=== PATIENT | female | born 1960 | race Caucasian/White ===

== ENCOUNTER 2016-08-23 17:21 | Emergency (ER) | payer OTHER, MEDICARE ==
[~2016-08-23 17:21] MED LIST: ALLEGRA; ALLEGRA ALLERG180 M1 PO; AMOXICILLIN500 M2 PO; ATIVAN0.5 M1 PO; ATIVAN1 M1 PO; CALCIUM 600600 M1 PO; CALCIUM600 M3 PO; CHILDREN'S ASPI81 M1 PO; GI COCKTAIL; LEVSIN0.125 M1 PO; LIDOCAINE HCL V15 ML PO; MASON NATURAL2000 IU PO; NASONEX0.05 MG/Ac NAS; PANTOPRAZOLE SO40 M1 PO; SIMVASTATIN20 MG PO; VITAMIN D-32000 UNIT PO; ZITHROMAX Z-PA250 M1 PO; ZOCOR40 M1 PO
[2016-08-23 18:57] LABS: ABSOLUTE BASOPHIL COUNT 0.1 /CUMM (0.0-0.2); ABSOLUTE EOSINOPHIL COUNT 0.1 /CUMM (0.0-0.7); ABSOLUTE GRANULOCYTE CT 6.1 /CUMM (1.4-6.5); ABSOLUTE LYMPH COUNT 1.4 /CUMM (1.2-3.4); ABSOLUTE MONOCYTE COUNT 0.7 /CUMM (0.10-0.60); BASOPHIL % 0.7 % (0.0-2.0); EOSINOPHIL % 1.4 % (0-5); GRANULOCYTE % 73.2 % (42.2-75.2); HEMATOCRIT 41.8 % (37-47); MEAN CORPUSCULAR HGB CONC 32.7 G/DL (33.0-37.0); MEAN CORPUSCULAR VOLUME 85.5 FL (81.0-99.0); MEAN PLATELET VOLUME 10.4 FL (7.4-10.4); PLATELET COUNT 163 /CUMM (130-400); RBC DISTRIBUTION WIDTH 13.8 % (11.5-14.5); WHITE BLOOD CELL COUNT 8.4 /CUMM (4.8-10.8)
[2016-08-23] MEDS ORDERED: LEVSIN-SL0.125 MG SL (18:59)
[2016-08-23] MEDS ORDERED: BONIVA150 M1 PO (19:00)
[2016-08-23 19:36] VITALS: BP 135/86
[2016-08-23] MEDS ORDERED: LIDOCAINE HCL V15 ML PO (20:13)
--- NOTE | 2016-08-23 20:14 | ED GI/GU/ABDOMINAL COMPLAINT ---
History of Present Illness General Chief Complaint: Abdominal Pain/Flank Pain Stated Complaint: ABD PAIN, X 1 DAY Source: patient, family Exam Limitations: no limitations Vital Signs & Intake/Output Vital Signs & Intake/Output Vital Signs Date Time Temp Pulse Resp B/P Pulse O2 O2 Flow FiO2 Ox Delivery Rate 08/23 1936 98 08/24 1935 97.5 78 20 135/86 98 Room Air 08/23 1729 97.9 110 22 143/83 97 Room Air ED Intake and Output 08/24 0000 08/23 1200 Intake Total Output Total 100 Balance -100 Output, Urine 100 Patient 110 lb Weight Allergies Coded Allergies: No Known Allergies (08/30/15) Reconcile Medications Aspirin (Children's Aspirin) 81 MG TAB.CHEW 1 TAB PO DAILY HEART/BLOOD ( Reported) Calcium Carbonate (Calcium) 600 MG TABLET 2 TAB PO DAILY SUPPLEMENT (Reported ) Cholecalciferol (Vitamin D3) (Vitamin D-3) (Unknown Strength) TABLET (Unknown Dose) PO DAILY SUPPLEMENT (Reported) Fexofenadine HCl (Jonna Allergy) 180 MG TABLET 1 TAB PO DAILY ALLERGIES ( Reported) Hyoscyamine Sulfate (Levsin-Sl) 0.125 MG TAB.SUBL 1 TAB SL PRN GI (Reported) Ibandronate Sodium (Boniva) 150 MG TABLET 1 TAB PO Q30D BONES (Reported) on the same date with a full glass of water at least 30 minutes before first food or drink of the day; remain in an upright posi Lidocaine HCl (Lidocaine HCl Viscous) 2 % SOLUTION 15 ML PO 4XDP Epigasrtic Pain Lorazepam (Ativan) 0.5 MG TABLET 1 TAB PO QAM STRESS (Reported) Lorazepam (Ativan) 1 MG TABLET 1 TAB PO QPM STRESS (Reported) Pantoprazole Sodium 40 MG TABLET.DR 1 TAB PO DAILY GI (Reported) Simvastatin (Zocor*) 40 MG TABLET 1 TAB PO QPM CHOLESTEROL (Reported) Triage Note: PER PT ABD PAIN ALL DAY DENIES DIARRHEA. Triage Nurses Notes Reviewed? yes ? n Is pt currently ? No HPI: 55 yo F PMH HTN, CP, IBS, GERD presenting with epigastric pain. Patient has had identical pain intermittently for the last 15 years, extensive outpatient evaluation by neurology and gastroenterology, thought to be 2/2 dystonia, typically managed at home with Maalox/lidocaine and ativan. Tonight after dinner patient developed epigasrtic pain, squeezing/twisting quality, consistent with previous episodes, less severe than usual, took ativan and GI cocktail without significant relief prompting presentation to the ED. Deneis assocaited fevers, chills, cough, CP, SOB, N/V/D/C, bloody stools, urinary Sx, focal neurologic Sx. (CINDY CAMACHO MD) Past History Travel History Traveled to [place] past 21 day No Medical History Any Pertinent Medical History? see below for history Neurological: CEREBRAL PALSY EENT: allergies Cardiovascular: hyperlipidemia, MITRAL VALVE REPAIR Respiratory: NONE Gastrointestinal: GERD, irritable bowel syndrome Hepatic: NONE Renal: NONE Musculoskeletal: NONE Psychiatric: NONE Endocrine: NONE Blood Disorders: NONE HOST/HOSTESS/Reproductive: NONE Surgical History Surgical History: non-contributory Psychosocial History What is your primary language Italian Tobacco Use: Never used Family History Hx Contributory? Yes (CINDY CAMACHO MD) Review of Systems Review of Systems Constitutional: Reports: no symptoms. EENTM: Reports: no symptoms. Respiratory: Reports: no symptoms. Cardiovascular: Reports: no symptoms. GI: Reports: abdominal pain. Denies: constipation, diarrhea, nausea, bloody stool, vomiting. Genitourinary: Reports: no symptoms. Musculoskeletal: Reports: no symptoms. Skin: Reports: no symptoms. Neurological/Psychological: Reports: anxiety. Hematologic/Endocrine: Reports: no symptoms. Immunologic/Allergic: Reports: no symptoms. All Other Systems: Reviewed and Negative (CINDY CAMACHO MD) Physical Exam Physical Exam General Appearance: well developed/nourished, no apparent distress, alert Head: atraumatic, normal appearance Eyes: Bilateral: normal appearance. Neck: normal inspection, supple, full range of motion Respiratory: normal breath sounds, no respiratory distress, lungs clear Cardiovascular: regular rate/rhythm, normal peripheral pulses Gastrointestinal: normal bowel sounds, soft, Mild epigasrtic TTP without rebound or guarding Neurologic/Psych: no motor/sensory deficits, awake, alert Core Measures ACS in differential dx? No Severe Sepsis Present: No Septic Shock Present: No (CINDY CAMACHO MD) Progress Differential Diagnosis: appendicitis, biliary colic, bowel obstruction, cholecystitis, diverticulitis, gastritis, ischemic bowel, pancreatitis, PUD/GERD , SBO, UTI/pyelo Plan of Care: Orders Procedure Date/time Status URINE 08/23 1813 Complete URINALYSIS 08/23 1813 Complete LIPASE 08/23 1813 Complete LACTIC ACID 08/23 1813 Complete COMPREHENSIVE METABOLIC PANEL 08/23 1813 Complete CBC WITHOUT DIFFERENTIAL 08/23 1813 Complete Laboratory Tests 08/23/161844: Anion Gap 12, Estimated GFR > 60, BUN/Creatinine Ratio 21.4, Glucose 107 H, Lactic Acid 1.1, Calcium 9.7, Total Bilirubin 1.8 H, AST 24, ALT 34, Alkaline Phosphatase 104, Total Protein 7.5, Albumin 4.4, Globulin 3.1, Albumin/Globulin Ratio 1.4, Lipase 109, CBC w Diff NO MAN DIFF REQ, RBC 4.90, MCV 85.5, MCH 28.0, RDW 13.8, MPV 10.4, Gran % 73.2, Lymphocytes % 16.9 L, Monocytes % 7.8, Eosinophils % 1.4, Basophils % 0.7, Absolute Granulocytes 6.1, Absolute Lymphocytes 1.4, Absolute Monocytes 0.7 H, Absolute Eosinophils 0.1, Absolute Basophils 0.1, PUBS MCHC 32.7 L 08/23/161838: Urinalysis LIGHT H, Urine Color YEL, Urine Clarity CLEAR, Urine pH 6.0, Ur Specific [place] >= 1.030, Urine Protein TRACE H, Urine Ketones TRACE H, Urine Nitrite NEG, Urine Bilirubin NEG, Urine Urobilinogen 0.2, Ur Leukocyte Esterase NEG, Ur Microscopic SEDIMENT EXAMINED, Urine RBC RARE, Urine WBC RARE, Ur Epithelial Cells RARE, Urine Mucus MOD H, Urine Hemoglobin SMALL H, Urine Glucose NEG, Urine Test NEGATIVE Physician MDM: 55 yo F PMH CP, GERD, IBS presenting with acute on chronic epigastric abdominal pain. VSS, physical exam as above. DDx: Acute on chronic pain 2/2 dystonia, GERD, PUD, gasrtitis, less likely surgical abdominal pathology. CMP, CBC, lipase, lactic acid unermarkable. Given ativan 1 mg and maalox with complete resolution of abdominal discomfort (consistent with prior presentations), On re-examination resting comfortably, requesting discharge. Given presentation consistent with previous, with reassuring labs, D/Andry with return precautions, plan to f/u with neurologist or milieu therapist in the next 2-3 days . D/W Dr. Sellers. (DOUG PETER,CINDY) Initial ED EKG: none (DOUG PETER,CINDY) Departure Departure Disposition: HOME OR SELF CARE Condition: Stable Clinical Impression Primary Impression: Abdominal pain Qualifiers: Abdominal location: epigastric Qualified Code: R10.13 - Epigastric pain Secondary Impressions: Dystonia Referrals: HUI PETER,ARIES Jain (PCP/Family) Additional Instructions: Take maalox, viscous lidocaine, and ativan as previously prescribed. Follow up wt Dr. Milian or your neurologist in the next 2-3 days. Return to the ED for any new, worsening, or concerning symptoms. Departure Forms: Customer Survey General Discharge Information Prescriptions: Current Visit Scripts Lidocaine HCl (Lidocaine HCl Viscous) 15 ML PO 4XDP #100 ML (DOUG PETER,CINDY) Resident Co-Sign Statement Statement: ED Attending supervision documentation- [x] I saw and evaluated the patient. I have also reviewed all the pertinent lab results and diagnostic results. I agree with the findings and the plan of care as documented in the Resident's documentation. [] I have reviewed the ED Record and agree with the Resident's documentation. [] Additions or exceptions (if any) to the Resident's note and plan are summarized below: [] (ÁLVARO PETER,KHADAR Stanley)
== END 2016-08-23 20:36 ==
LOC: ERH 17:21
PROVIDERS: Student in an Organized Health Care Education/Training Program
DX: R10.13 Epigastric pain (principal); G24.9 Dystonia, unspecified
CPT/HCPCS: 81001; 81025

== ENCOUNTER 2016-09-08 15:35 | Emergency (ER) | payer OTHER, MEDICARE ==
[~2016-09-08 15:35] MED LIST changes: +BONIVA150 M1 PO; +LEVSIN-SL0.125 MG SL
[2016-09-08 15:56] VITALS: BP 147/92
--- NOTE | 2016-09-08 17:03 | ED GI/GU/ABDOMINAL COMPLAINT ---
History of Present Illness General Chief Complaint: Abdominal Pain/Flank Pain Stated Complaint: ABD PAIN Source: patient, family, old records Exam Limitations: no limitations Vital Signs & Intake/Output Vital Signs & Intake/Output Vital Signs Date Time Temp Pulse Resp B/P Pulse O2 O2 Flow FiO2 Ox Delivery Rate 09/08 1705 98 09/08 1556 98.9 90 22 147/92 98 Room Air ED Intake and Output 09/09 0000 09/08 1200 Intake Total 100 Output Total Balance 100 Intake, Oral 100 Allergies Coded Allergies: No Known Allergies (08/30/15) Reconcile Medications Aspirin (Children's Aspirin) 81 MG TAB.CHEW 1 TAB PO DAILY HEART/BLOOD ( Reported) Calcium Carbonate (Calcium) 600 MG TABLET 2 TAB PO DAILY SUPPLEMENT (Reported ) Cholecalciferol (Vitamin D3) (Vitamin D-3) (Unknown Strength) TABLET (Unknown Dose) PO DAILY SUPPLEMENT (Reported) Fexofenadine HCl (Jonna Allergy) 180 MG TABLET 1 TAB PO DAILY ALLERGIES ( Reported) Hyoscyamine Sulfate (Levsin-Sl) 0.125 MG TAB.SUBL 1 TAB SL PRN GI (Reported) Ibandronate Sodium (Boniva) 150 MG TABLET 1 TAB PO Q30D BONES (Reported) on the same date with a full glass of water at least 30 minutes before first food or drink of the day; remain in an upright posi Lidocaine HCl (Lidocaine HCl Viscous) 2 % SOLUTION 15 ML PO 4XDP Epigasrtic Pain Lorazepam (Ativan) 0.5 MG TABLET 1 TAB PO QAM STRESS (Reported) Lorazepam (Ativan) 1 MG TABLET 1 TAB PO QPM STRESS (Reported) Pantoprazole Sodium 40 MG TABLET.DR 1 TAB PO DAILY GI (Reported) Simvastatin (Zocor*) 40 MG TABLET 1 TAB PO QPM CHOLESTEROL (Reported) Triage Note: PER PT HERE WITH ABD PAIN USED GI COCKTAIL ABOUT 1 PM SLEPT SOME BUT WOKE UP STILL WUITH PAIN. Triage Nurses Notes Reviewed? yes ? n Is pt currently ? No HPI: Patient is a 55-year-old female presents complaining of epigastric pain onset at 1:30 PM today. Pain is "an annoying pain" consistent with patient's chronic abdominal pain. Patient took Maalox and a dose of Ativan, slept for 1 hour and awoke with the same pain. Pain is currently 8 out of 10. Denies fevers, chills , nausea, vomiting, urinary symptoms, diarrhea, constipation. Past History Travel History Traveled to [place] past 21 day No Medical History Any Pertinent Medical History? 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 No Review of Systems Review of Systems Constitutional: Denies: chills, fever. EENTM: Reports: no symptoms. Respiratory: Reports: no symptoms. Cardiovascular: Reports: no symptoms. GI: Reports: see HPI. Genitourinary: Reports: no symptoms. Musculoskeletal: Reports: no symptoms. Skin: Reports: no symptoms. Neurological/Psychological: Reports: no symptoms. Hematologic/Endocrine: Reports: no symptoms. Immunologic/Allergic: Reports: no symptoms. Physical Exam Physical Exam General Appearance: well developed/nourished, alert, awake Head: atraumatic, normal appearance Eyes: Bilateral: normal appearance, PERRL, EOMI. Ears, Nose, Throat, Mouth: hearing grossly normal, moist mucous membrane Neck: normal inspection, supple, full range of motion Respiratory: no respiratory distress Cardiovascular: regular rate/rhythm Gastrointestinal: normal bowel sounds, soft, non-tender Back: normal inspection, normal range of motion Extremities: normal range of motion Neurologic/Psych: awake, alert, oriented x 3, normal mood/affect Skin: intact, normal color, warm/dry Core Measures ACS in differential dx? No Severe Sepsis Present: No Septic Shock Present: No Progress Differential Diagnosis: abdominal pain secondary to cerebral palsy, biliary colic, cholecystitis, pancreatitis, perforated viscous, chronic abdominal pain. Plan of Care: Current Medications Sig/Eagle Start time Last Medication Dose Stop Time Status Admin Lorazepam 1 MG ONCE ONE 09/08 1714 UNVr (Ativan) 09/09 171509/08/2016 5:12:11 PM: Abdomen soft, nontender throughout. Similar to multiple previous emergency Department visits. Labs deferred on initial presentation we' ll treat with Ativan and GI cocktail which has previously improved patient's symptoms if no improvement then will obtain lab work and consider further imaging. 09/08/2016 5:54:27 PM: Patient reports pain has resolved. Labs and imaging deferred. 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 Will provide information for Dr. Gee. Also encouraged follow up with her doctors. (KRYSTYNA WOODS,ANAY) Initial ED EKG: none Departure Departure Time of Disposition: 1755 Disposition: HOME OR SELF CARE Condition: Stable Clinical Impression Primary Impression: Chronic abdominal pain Referrals: HUI PETER,ARIES Jain (PCP/Family) Additional Instructions: Follow-up with your primary doctor for further evaluation. Also you may contact Dr. Gee (banner painter). Return to the emergency department if fevers, vomiting, increasing pain, worsening of symptoms. Departure Forms: Customer Survey General Discharge Information
== END 2016-09-08 18:00 ==
LOC: ERH 15:35
DX: R10.13 Epigastric pain (principal)
CPT/HCPCS: 96372

== ENCOUNTER 2016-11-06 13:09 | Emergency (ER) | payer OTHER, MEDICARE ==
[~2016-11-06] VITALS: Ht 167.6 cm; Wt 50.3 kg
--- NOTE | 2016-11-06 13:30 | ED GI/GU/ABDOMINAL COMPLAINT ---
History of Present Illness General Chief Complaint: Abdominal Pain/Flank Pain Stated Complaint: abd pain Source: patient Exam Limitations: no limitations Vital Signs & Intake/Output Vital Signs & Intake/Output Vital Signs Date Time Temp Pulse Resp B/P B/P Pulse O2 O2 Flow FiO2 Mean Ox Delivery Rate 11/06 1516 97.9 82 18 147/80 95 Room Air 11/06 1315 98.4 85 15 158/84 92 Room Air Room Air Allergies Coded Allergies: No Known Allergies (11/06/16) Reconcile Medications Aspirin (Children's Aspirin) 81 MG TAB.CHEW 1 TAB PO DAILY HEART/BLOOD ( Reported) Calcium (Elemental-Fr Calcarb) (Calcium) 600 MG CALCIUM (1,500 MG) TABLET 2 TAB PO DAILY SUPPLEMENT (Reported) Cholecalciferol (Vitamin D3) (Vitamin D-3) (Unknown Strength) TABLET (Unknown Dose) PO DAILY SUPPLEMENT (Reported) Fexofenadine HCl (Jonna Allergy) 180 MG TABLET 1 TAB PO DAILY ALLERGIES ( Reported) Hyoscyamine Sulfate (Levsin-Sl) 0.125 MG TAB.SUBL 1 TAB SL PRN GI (Reported) Ibandronate Sodium (Boniva) 150 MG TABLET 1 TAB PO Q30D BONES (Reported) on the same date with a full glass of water at least 30 minutes before first food or drink of the day; remain in an upright posi Lidocaine HCl (Lidocaine HCl Viscous) 2 % SOLUTION 15 ML PO 4XDP Epigasrtic Pain Lorazepam (Ativan) 0.5 MG TABLET 1 TAB PO QAM STRESS (Reported) Lorazepam (Ativan) 1 MG TABLET 1 TAB PO QPM STRESS (Reported) Pantoprazole Sodium 40 MG TABLET.DR 1 TAB PO DAILY GI (Reported) Simvastatin (Zocor*) 40 MG TABLET 1 TAB PO QPM CHOLESTEROL (Reported) Triage Note: PT TO ED FOR C/C OF ABD PAIN THAT STARTED 30 MINS LEAVE SPECIALIST. PT DENIES N/V/D. +ABD CRAMPING. LNBM 20 MINS LEAVE SPECIALIST WITHOUT BLOOD IN STOOL. Triage Nurses Notes Reviewed? yes ? N Is pt currently ? No Timing: single episode today Quality/Severity: moderate Severity Numbers: 5 Location: generalized abdomen Radiation: no radiation Prior Abdominal Problems: similar symptoms HPI: Patient is a 56-year-old female with past medical history of HTN, CP, IBS, GERD and chronic intermittent abdominal discomfort and pain where she states that 2 hours prior to arrival she had worsening symptoms of generalized abdominal pain where she presents to emergency room with brother stating that she has this pain every day however in last 2 hours symptoms have worsened. Symptoms will worsen off that patient needed to present to emergency room. Patient was able tolerate by mouth Ativan today denies any fever chills nausea vomiting dysuria hematuria. Last bowel movement was today no blood no melena noted. Past History Travel History Traveled to [place] past 21 day No Medical History Any Pertinent Medical History? 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 No Review of Systems Review of Systems Constitutional: Reports: no symptoms. EENTM: Reports: no symptoms. Respiratory: Reports: no symptoms. Cardiovascular: Reports: no symptoms. GI: Reports: see HPI, abdominal pain. Genitourinary: Reports: no symptoms. Musculoskeletal: Reports: no symptoms. Skin: Reports: no symptoms. Neurological/Psychological: Reports: no symptoms. Hematologic/Endocrine: Reports: no symptoms. Immunologic/Allergic: Reports: no symptoms. All Other Systems: Reviewed and Negative Physical Exam Physical Exam General Appearance: no apparent distress, alert, comfortable Gastrointestinal: normal bowel sounds, soft, MILD GENERALIZED POINT TENDERNESS Comments: Well-developed well-nourished person in no acute distress HEENT: Normal EENT exam, Neck: Supple, no lymphadenopathy, normal range of motion without pain or tenderness Back: Nontender, no CVA tenderness. Cardiovascular: Regular rate and rhythms no murmurs rubs or gallops, normal JVP Respiratory: Chest nontender. No respiratory distress.breath sounds clear to auscultation bilaterally Extremity: No edema, no calf tenderness to palpation, normal and equal pulses. Neuro: Alert oriented x3, motor sensory normal, Skin: No appreciable rash on exposed skin, skin is warm and dry. Psych: Mood and affect is normal, memory and judgment is normal. Core Measures ACS in differential dx? No Severe Sepsis Present: No Septic Shock Present: No Progress Differential Diagnosis: AAA, AMI, appendicitis, biliary colic, bowel obstruction , colon cancer, cholecystitis, diverticulitis, endometritis, esophageal varices, gastritis, hepatitis, hernia, hemorrhoids, ischemic bowel, inflamm bowel dis, kidney stone, Nkechi-Earnestine tear, ovarian cyst, ovarian torsion, pancreatitis, PID/cervicitis, peptic ulcer, PUD/GERD, perforated viscous, SBO, UTI/pyelo Plan of Care: Orders Procedure Date/time Status COMPREHENSIVE METABOLIC PANEL 11/06 1323 Complete CBC WITHOUT DIFFERENTIAL 11/06 1323 Complete Laboratory Tests 11/06/16 1356: Anion Gap 12, Estimated GFR > 60, BUN/Creatinine Ratio 24.3, Glucose 88, Calcium 9.8, Total Bilirubin 1.9 H, AST 20, ALT 22, Alkaline Phosphatase 79, Total Protein 7.1, Albumin 4.1, Globulin 3.0, Albumin/Globulin Ratio 1.4, CBC w Diff NO MAN DIFF REQ, RBC 4.90, MCV 84.6, MCH 28.3, RDW 14.5, MPV 9.7, Gran % 77.9 H , Lymphocytes % 15.6 L, Monocytes % 6.0, Eosinophils % 0.2, Basophils % 0.3, Absolute Granulocytes 5.9, Absolute Lymphocytes 1.2, Absolute Monocytes 0.5, Absolute Eosinophils 0, Absolute Basophils 0, PUBS MCHC 33.5 11/06/16 1315: Urine Color Cancelled, Urine Clarity Cancelled, Urine pH Cancelled, Ur Specific [place] Cancelled, Urine Protein Cancelled, Urine Ketones Cancelled, Urine Nitrite Cancelled, Urine Bilirubin Cancelled, Urine Urobilinogen Cancelled, Ur Leukocyte Esterase Cancelled, Ur Microscopic Cancelled, Urine Hemoglobin Cancelled, Urine Glucose Cancelled Patient currently is resting comfortably at bedside. No apparent distress afebrile nontoxic appearing blood work will be established with IV Ativan and GI cocktail administered which patient usually receives for her exacerbation of her abdominal discomfort Blood work is unremarkable patient had significant resolution of abdominal pain and has no nausea. At this time I do not suspect patient have appendicitis nor does patient require emergent CT scanning at this time. Upon discharge patient looks well no apparent distress and will comply with discharge instructions and had no questions (GARRETT WOODS,BRIT) Initial ED EKG: none Departure Departure Disposition: HOME OR SELF CARE Condition: Stable Clinical Impression Primary Impression: Abdominal pain Referrals: HUI PETER,ARIES Jain (PCP/Family) Additional Instructions: As discussed continue home medications as directed. If symptoms worsen return to emergency room. Follow-up with your established medical provider as directed Departure Forms: Customer Survey General Discharge Information
[2016-11-06 14:03] LABS: ABSOLUTE BASOPHIL COUNT 0 /CUMM (0.0-0.2); ABSOLUTE EOSINOPHIL COUNT 0 /CUMM (0.0-0.7); ABSOLUTE GRANULOCYTE CT 5.9 /CUMM (1.4-6.5); ABSOLUTE LYMPH COUNT 1.2 /CUMM (1.2-3.4); ABSOLUTE MONOCYTE COUNT 0.5 /CUMM (0.10-0.60); BASOPHIL % 0.3 % (0.0-2.0); EOSINOPHIL % 0.2 % (0-5); GRANULOCYTE % 77.9 % (42.2-75.2); HEMATOCRIT 41.5 % (37-47); MEAN CORPUSCULAR HGB 28.3 PG (27.0-31.0); MEAN CORPUSCULAR HGB CONC 33.5 G/DL (33.0-37.0); MEAN CORPUSCULAR VOLUME 84.6 FL (81.0-99.0); MEAN PLATELET VOLUME 9.7 FL (7.4-10.4); PLATELET COUNT 149 /CUMM (130-400); RBC DISTRIBUTION WIDTH 14.5 % (11.5-14.5); WHITE BLOOD CELL COUNT 7.6 /CUMM (4.8-10.8)
[2016-11-06 15:16] VITALS: BP 147/80
== END 2016-11-06 15:17 ==
LOC: ERH 13:09
PROVIDERS: Emergency Medicine
DX: R10.84 Generalized abdominal pain (principal)
CPT/HCPCS: 96374

== ENCOUNTER 2017-06-24 08:05 | Emergency (ER) | payer OTHER, MEDICARE ==
[~2017-06-24] VITALS: Ht 167.6 cm; Wt 52.2 kg
[~2017-06-24 08:05] MED LIST changes: +CRESTOR20 M2 PO; +GI COCKTAIL PO
--- NOTE | 2017-06-24 08:54 | ED GI/GU/ABDOMINAL COMPLAINT ---
History of Present Illness General Chief Complaint: Abdominal Pain/Flank Pain Stated Complaint: ABD PAIN Source: patient Exam Limitations: no limitations Vital Signs & Intake/Output Vital Signs & Intake/Output Vital Signs Date Time Temp Pulse Resp B/P B/P Pulse O2 O2 Flow FiO2 Mean Ox Delivery Rate 06/24 1134 98.0 100 20 130/80 96 Room Air 06/24 1011 97.6 103 20 130/76 96 Room Air 06/24 0808 96.7 118 18 138/72 95 Room Air Room Air Allergies Coded Allergies: No Known Allergies (11/06/16) Reconcile Medications Aspirin (Children's Aspirin) 81 MG TAB.CHEW 1 TAB PO DAILY HEART/BLOOD ( Reported) Calcium (Elemental-Fr Calcarb) (Calcium) 600 MG CALCIUM (1,500 MG) TABLET 2 TAB PO DAILY SUPPLEMENT (Reported) Cholecalciferol (Vitamin D3) (Vitamin D-3) 2,000 UNIT TABLET 1 TAB PO DAILY SUPPLEMENT (Reported) Fexofenadine HCl (Jonna Allergy) 180 MG TABLET 1 TAB PO DAILY ALLERGIES ( Reported) Hyoscyamine Sulfate (Levsin-Sl) 0.125 MG TAB.SUBL 1 TAB SL PRN GI (Reported) Ibandronate Sodium (Boniva) 150 MG TABLET 1 TAB PO Q30D BONES (Reported) on the same date with a full glass of water at least 30 minutes before first food or drink of the day; remain in an upright posi LORazepam (Ativan) 1 MG TABLET 1 TAB PO BID STRESS (Reported) Pantoprazole Sodium 40 MG TABLET.DR 1 TAB PO DAILY GI (Reported) Rosuvastatin Calcium (Crestor) 20 MG TABLET 1 TAB PO DAILY CHOLESTEROL ( Reported) Triage Note: PT TO ED WITH "ABD CRAMPING", STARTED ON MEDICAL MARIJUANA FOR THE PAIN. Triage Nurses Notes Reviewed? yes ? n Is pt currently ? No Onset: Abrupt Duration: day(s):, constant Timing: recent history Quality/Severity: moderate Location: generalized abdomen Radiation: no radiation Activities at Onset: none No Modifying Factors: none HPI: 56-year-old female comes into the emergency room with complaints of abdominal pain. Patient has a history of cerebral palsy and has been here for similar symptoms in the past. Weapons Designer gave the patient a GI cocktail as well as her medical marijuana which was recently prescribed. She had some nausea and vomiting. (Valentín Fong) Past History Travel History Traveled to [place] past 21 day No Medical History Any Pertinent Medical History? see below for history Neurological: CEREBRAL PALSY EENT: allergies Cardiovascular: hyperlipidemia, MITRAL VALVE REPAIR Respiratory: NONE Gastrointestinal: GERD, irritable bowel syndrome Hepatic: NONE Renal: NONE Musculoskeletal: NONE Psychiatric: NONE Endocrine: NONE Blood Disorders: NONE DISTRICT COURT JUDGE/Reproductive: NONE Surgical History Surgical History: CARDIAC VALVE Psychosocial History What is your primary language Maori Tobacco Use: Never used ETOH Use: denies use Illicit Drug Use: denies illicit drug use Family History Hx Contributory? No (Valentín Fong) Review of Systems Review of Systems Constitutional: Reports: no symptoms. EENTM: Reports: no symptoms. Respiratory: Reports: no symptoms. Cardiovascular: Reports: no symptoms. GI: Reports: see HPI. Genitourinary: Reports: no symptoms. Musculoskeletal: Reports: no symptoms. Skin: Reports: no symptoms. Neurological/Psychological: Reports: no symptoms. Hematologic/Endocrine: Reports: no symptoms. Immunologic/Allergic: Reports: no symptoms. All Other Systems: Reviewed and Negative (Valentín Fong) Physical Exam Physical Exam General Appearance: well developed/nourished, alert, awake Head: atraumatic Eyes: Bilateral: normal appearance, EOMI. Ears, Nose, Throat, Mouth: hearing grossly normal, moist mucous membrane Neck: normal inspection Respiratory: normal breath sounds, no respiratory distress Cardiovascular: regular rate/rhythm Gastrointestinal: soft, non-tender Back: normal inspection Extremities: normal range of motion Neurologic/Psych: awake, alert, oriented x 3 Skin: intact, normal color Core Measures ACS in differential dx? No Sepsis Present: No Sepsis Focused Exam Completed? No (Valentín Fong) Progress Differential Diagnosis: biliary colic, bowel obstruction, cholecystitis, diverticulitis, PID/cervicitis, peptic ulcer, PUD/GERD, SBO, gerd, muscle spasms Plan of Care: Orders Procedure Date/time Status URINALYSIS 06/24 812 Complete LIPASE 06/24 812 Complete COMPREHENSIVE METABOLIC PANEL 06/24 812 Complete CBC WITHOUT DIFFERENTIAL 06/24 812 Complete AMYLASE 06/24 812 Complete Laboratory Tests 06/24/17 1100: Urinalysis LIGHT H, Urine Color YEL, Urine Clarity CLEAR, Urine pH 6.0, Ur Specific [place] 1.010, Urine Protein NEG, Urine Ketones NEG, Urine Nitrite NEG, Urine Bilirubin NEG, Urine Urobilinogen 0.2, Ur Leukocyte Esterase NEG, Ur Microscopic SEDIMENT EXAMINED, Urine RBC 1-3, Ur Epithelial Cells FEW, Urine Bacteria FEW H, Urine Hemoglobin TRACE-LYSED, Urine Glucose NEG 06/24/17 1005: Anion Gap 13, Estimated GFR > 60, BUN/Creatinine Ratio 33.3 H, Glucose 90, Calcium 9.3, Total Bilirubin 1.1, AST 19, ALT 30, Alkaline Phosphatase 68, Total Protein 6.8, Albumin 4.1, Globulin 2.7, Albumin/Globulin Ratio 1.5, Amylase 98, Lipase 78 06/24/17 0930: CBC w Diff MAN DIFF ORDERED, RBC 4.73, MCV 86.0, MCH 28.8, RDW 14.1, MPV 11.0 H , Gran % 87.9 H, Lymphocytes % 8.4 L, Monocytes % 3.1, Eosinophils % 0.1, Basophils % 0.5, Absolute Granulocytes 9.7 H, Segmented Neutrophils 79 H, Band Neutrophils 6 H, Absolute Lymphocytes 0.9 L, Lymphocytes 9 L, Monocytes 5, Absolute Monocytes 0.3, Absolute Eosinophils 0, Basophils 1, Absolute Basophils 0.1, Platelet Estimate ADEQUATE, Normochromic RBCs VERIFIED, PUBS MCHC 33.4 Initial ED EKG: none Comments: 06/24/2017 12:30:03 PM Patient clinically looks well. Patient is in no apparent distress. Patient is nontoxic-appearing. Patient has a history of chronic abdominal pain secondary to spasming from her cerebral palsy. Her symptoms are resolved and she feels better. She is following up with gastroenterology for an upper endoscopy. Return if any other concerns. She understands and agrees a plan of care. (Tam WOODS,Valentín) Departure Departure Disposition: HOME OR SELF CARE Condition: Stable Clinical Impression Primary Impression: Abdominal pain Referrals: Rukhsana PETER,Jelena Jain (PCP/Family) Additional Instructions: Please go over all results of today's visit with your primary care doctor. Contact your primary care doctor to let them know you were here in the emergency room. There may be nonspecific findings which may not be related to your visit today here in the emergency room but may require further evaluation and chronic monitoring by your primary care doctor. If you had a laceration today the chance of foreign body always remains. You should follow-up with your primary care doctor for recheck in 3-5 days for a wound check. If you had an x-ray done there is a chance that a fracture could have been missed on initial read and you should follow-up with your primary care doctor for repeat x-rays if symptoms persist. If your blood pressure was elevated here in the emergency room please have rechecked by our primary care doctor within the next 48. If you were prescribed a narcotic here in the emergency room or any type of controlled substances you're not allowed to drive while taking this medication or operate any type of heavy machinery. Narcotics can make you feel lightheaded dizziness nausea and can cause constipation. You may need to shrimp picker a stool softener. Thank you for choosing [facility] emergency room. Please return to the emergency room immediately if you have any other concerns worsening of symptoms. Departure Forms: Customer Survey General Discharge Information (Valentín Fong) PA/RAYON CONER Co-Sign Statement Statement: ED Attending supervision documentation- [] I saw and evaluated the patient. I have also reviewed all the pertinent lab results and diagnostic results. I agree with the findings and the plan of care as documented in the PA's/RAYON CONER's documentation. [X] I have reviewed the ED Record and agree with the PA's/RAYON CONER's documentation. [] Additions or exceptions (if any) to the PAs/RAYON CONER's note and plan are summarized below: [] (Carmenza PETER,Lisa)
[2017-06-24 09:42] LABS: ABSOLUTE BASOPHIL COUNT 0.1 /CUMM (0.0-0.2); ABSOLUTE EOSINOPHIL COUNT 0 /CUMM (0.0-0.7); ABSOLUTE GRANULOCYTE CT 9.7 /CUMM (1.4-6.5); ABSOLUTE LYMPH COUNT 0.9 /CUMM (1.2-3.4); ABSOLUTE MONOCYTE COUNT 0.3 /CUMM (0.10-0.60); BASOPHIL % 0.5 % (0.0-2.0); EOSINOPHIL % 0.1 % (0-5); GRANULOCYTE % 87.9 % (42.2-75.2); HEMATOCRIT 40.7 % (37-47); MEAN CORPUSCULAR HGB 28.8 PG (27.0-31.0); MEAN CORPUSCULAR HGB CONC 33.4 G/DL (33.0-37.0); PLATELET COUNT 159 /CUMM (130-400); RBC DISTRIBUTION WIDTH 14.1 % (11.5-14.5); RED BLOOD CELL CT 4.73 /CUMM (4.20-5.40)
[2017-06-24 11:34] VITALS: BP 130/80
== END 2017-06-24 11:35 ==
LOC: ERH 08:05
PROVIDERS: Physician Assistant Medical
DX: R10.84 Generalized abdominal pain (principal); R11.2 Nausea with vomiting, unspecified
CPT/HCPCS: 81001; 96361; 96374

== ENCOUNTER 2017-07-07 08:44 | Emergency (ER) | payer OTHER, MEDICARE ==
[~2017-07-07] VITALS: Ht 167.6 cm; Wt 50.3 kg
--- NOTE | 2017-07-07 09:36 | ED GI/GU/ABDOMINAL COMPLAINT ---
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 Source: patient, family, old records Exam Limitations: no limitations Vital Signs & Intake/Output Vital Signs & Intake/Output Vital Signs Date Time Temp Pulse Resp B/P B/P Pulse O2 O2 Flow FiO2 Mean Ox Delivery Rate 07/07 1417 97.9 92 18 140/78 98 07/07 0848 97.0 92 20 142/83 98 Room Air Allergies Coded Allergies: No Known Allergies (11/06/16) Reconcile Medications Aspirin (Children's Aspirin) 81 MG TAB.CHEW 1 TAB PO DAILY HEART/BLOOD ( Reported) Calcium (Elemental-Fr Calcarb) (Calcium) 600 MG CALCIUM (1,500 MG) TABLET 2 TAB PO DAILY SUPPLEMENT (Reported) Cholecalciferol (Vitamin D3) (Vitamin D-3) 2,000 UNIT TABLET 1 TAB PO DAILY SUPPLEMENT (Reported) Fexofenadine HCl (Jonna Allergy) 180 MG TABLET 1 TAB PO DAILY ALLERGIES ( Reported) Hyoscyamine (Levsin) 0.125 MG TABLET 1 TAB PO Q4 PRN ABDOMINAL SPASMS Hyoscyamine Sulfate (Levsin-Sl) 0.125 MG TAB.SUBL 1 TAB SL PRN GI (Reported) Ibandronate Sodium (Boniva) 150 MG TABLET 1 TAB PO Q30D BONES (Reported) on the same date with a full glass of water at least 30 minutes before first food or drink of the day; remain in an upright posi LORazepam (Ativan) 1 MG TABLET 1 TAB PO BID STRESS (Reported) Pantoprazole Sodium 40 MG TABLET.DR 1 TAB PO DAILY GI (Reported) Rosuvastatin Calcium (Crestor) 20 MG TABLET 1 TAB PO DAILY CHOLESTEROL ( Reported) Triage Note: PT C/O UPPER MID ABDOMINAL PAIN SINCE LAST NIGHT. STATES PAIN IS NON RADIATING. PT DENIES N/V/D Triage Nurses Notes Reviewed? yes ? n Is pt currently ? No Duration: worse persistent since (1 day) Timing: recent history Quality/Severity: cramping, moderate Location: periumbilical Radiation: no radiation Activities at Onset: none Prior Abdominal Problems: recent trauma, similar symptoms Past Sexual History: Unobtainable at this time No Modifying Factors: none HPI: Patient is a 56-year-old female with history of cerebral palsy, irritable bowel syndrome presenting to the emergency department with chief complaint of abdominal pain, periumbilically located that's nonradiating worsening since yesterday evening. History of similar pain in the past. Patient reports that she's been seen and evaluated multiple times for the same area and reports her at home medication only helped slightly. She does report increased stress and anxiety, would like to speak with precision printing worker. Denies suicidal or homicidal ideation. The brother's concerned because He feels like his sister is "fed up with the pain" and she says she "can't DEAL WITH it anymore". Denies any diarrhea or constipation. No nausea or vomiting. Denies fevers or chills. No chest pain palpitations or shortness of breath. The brother reports that usually IV Ativan helps with the discomfort. Abdominal pain started 20 years ago after a stressful situation. (Marguerite Foster) Past History Travel History Traveled to [place] past 21 day No Medical History Any Pertinent Medical History? 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 No (Marguerite Foster) Review of Systems Review of Systems Constitutional: Reports: no symptoms. Comments Review of systems: See HPI, All other systems negative. Constitutional, no chills fever or weight loss HEENT: No visual changes no sore throat no congestion Cardiovascular: No chest pain ,palpitation , orthopnea or ankle swelling Skin, no jaundice no rashes Respiratory: No dyspnea cough sputum or hemoptysis GI: No nausea no vomiting : No dysuria No hematuria Muscle skeletal: no back pain, no neck pain, Neurologic: No numbness no confusion NO HEADACHE Psych: No stress anxiety or depression,. Heme/endocrine: No bruising no bleeding no polyuria or polydipsia Immunology: No splenectomy or history of AIDS (Marguerite Foster) Physical Exam Physical Exam General Appearance: well developed/nourished, no apparent distress, alert, awake , comfortable Gastrointestinal: normal bowel sounds, soft, non-tender Comments: THIN person in no acute distress HEENT: Atraumatic, normocephalic, moist oral mucosa. Neck: Supple, no lymphadenopathy, normal range of motion without pain or tenderness Back: Nontender Cardiovascular: Regular rate and rhythms no murmurs rubs or gallops, normal JVP Respiratory: Chest nontender. No respiratory distress.breath sounds clear to auscultation bilaterally Abdomen: Soft, nontender nondistended, no appreciable organomegaly. Normal bowel sounds. No ascites, NO REBOUND OR GAURDING Extremity: No edema, no calf tenderness to palpation, normal and equal pulses. Neuro: Alert oriented x3 Skin: No appreciable rash on exposed skin, skin is warm and dry. Psych: Mood and affect is normal, memory and judgment is normal. Core Measures ACS in differential dx? No Sepsis Present: No Sepsis Focused Exam Completed? No (Priscilla WOODS,Marguerite) Progress Differential Diagnosis: appendicitis, pancreatitis, SBO, UTI/pyelo, GASTROPARESIS Plan of Care: Orders Procedure Date/time Status Regular Diet 07/07 D Active Add-on Test (ER Only) 07/07 1132 Active ETHANOL 07/07 1038 Complete URINE DRUG SCREEN FOR ER ONLY 07/07 0940 Complete URINALYSIS 07/07 0940 Complete LIPASE 07/07 0940 Complete COMPREHENSIVE METABOLIC PANEL 07/07 0940 Complete CBC WITHOUT DIFFERENTIAL 07/07 0940 Complete AMYLASE 07/07 0940 Complete ED CRISIS PSYCH CONSULT 07/07 0940 Active Laboratory Tests 07/07/17 1208: Urine Opiates Screen < 100.00, Methadone Screen < 40, Barbiturate Screen 244 H, Ur Phencyclidine Scrn < 6.00, Amphetamines Screen < 100, U Benzodiazepines Scrn < 85, Urine Cocaine Screen < 50, Urine Cannabis Screen > 80.00 H, Urinalysis LIGHT H, Urine Color YEL, Urine Clarity CLEAR, Urine pH 8.0, Ur Specific [place] 1.015, Urine Protein NEG, Urine Ketones NEG, Urine Nitrite NEG, Urine Bilirubin NEG, Urine Urobilinogen 0.2, Ur Leukocyte Esterase NEG, Ur Microscopic SEDIMENT EXAMINED, Urine RBC 5-10 H, Urine WBC RARE, Ur Epithelial Cells FEW, Urine Bacteria FEW H, Urine Hemoglobin SMALL H, Urine Glucose NEG 07/07/17 1038: Anion Gap 16, Estimated GFR > 60, BUN/Creatinine Ratio 35.0 H, Glucose 80, Calcium 9.6, Total Bilirubin 1.3, AST 20, ALT 28, Alkaline Phosphatase 69, Total Protein 7.3, Albumin 4.4, Globulin 2.9, Albumin/Globulin Ratio 1.5, Amylase 177 H, Lipase 323 H, CBC w Diff NO MAN DIFF REQ, RBC 4.70, MCV 86.6, MCH 28.4, RDW 14.1, MPV 11.3 H, Gran % 78.6 H, Lymphocytes % 13.8 L, Monocytes % 6.9, Eosinophils % 0.3, Basophils % 0.4, Absolute Granulocytes 6.2, Absolute Lymphocytes 1.1 L, Absolute Monocytes 0.5, Absolute Eosinophils 0, Absolute Basophils 0, PUBS MCHC 32.8 L, Serum Alcohol < 10.0 Diagnostic Imaging: Viewed by Me: Radiology Read. Discussed w/RAD: Radiology Read. Radiology Impression: PATIENT: NEIL FAUSTIN PRESENT AGE: 56 PATIENT ACCOUNT NO: [id number] : 62 LOCATION: [facility] ORDERING PHYSICIAN: Marguerite WOODS SERVICE DATE: 07/07/17 EXAM TYPE: RAD - [id number] VIEW EXAMINATION: XR ABDOMEN CLINICAL INDICATION: Recently started on fiber, worsening abdominal pain. COMPARISON: Plain film views of the sacrum and coccyx dated 04/14/2017. CT scan of the abdomen and pelvis dated 05/28/2017. TECHNIQUE: AP view of the abdomen. FINDINGS: There is complex scoliosis of the thoracolumbar spine with a substantial rotatory component involving the upper lumbar spine, as well as compensatory bulky osteophyte formation. Gas is present throughout visualized portions of the colon and within the rectosigmoid region. No dilated gas-filled small bowel loops are noted. No soft tissue calcifications are identified. IMPRESSION: Nonobstructive bowel gas pattern. DICTATED BY: Apple Patrick MD DATE/TIME DICTATED:07/07/171019 MARINE SPECIALIST:ERIC DATE/TIME TRANSCRIBED:07/07/171019 CONFIDENTIAL, DO NOT COPY WITHOUT APPROPRIATE AUTHORIZATION. <Electronically signed in Other Vendor System> SIGNED BY: Apple Patrick MD 07/07/17 102 Initial ED EKG: none Comments: Patient feeling improved after Levsin. They'll follow-up with OB appointment. Patient will return for worsening symptoms or concerns. Given list of pain management to follow up with. (Marguerite Foster) Departure Departure Time of Disposition: 1501 Disposition: HOME OR SELF CARE Condition: Stable Clinical Impression Primary Impression: Abdominal pain Qualifiers: Abdominal location: generalized Qualified Code: R10.84 - Generalized abdominal pain Secondary Impressions: Anxiety Pancreatitis Qualifiers: Chronicity: acute Pancreatitis type: unspecified pancreatitis type Acute pancreatitis complication: unspecified Qualified Code: K85.90 - Acute pancreatitis without necrosis or infection, unspecified Referrals: Rukhsana PETER,Jelena Jain (PCP/Family) Tez PETER,Norman Gee MD,Mike Nieto Additional Instructions: Follow-up with recommendations made by crisis. Take Levsin as prescribed to help with abdominal spasms. Increase fluid intake. You WERE also given a name and number for pain management follow-up with, CALL TO MAKE APPT. RETURN FOR WORSENING SYMPTOMS OR CONCERNS. Departure Forms: Customer Survey D/C INS-APPENDICITIS EXCLUSION General Discharge Information Prescriptions: Current Visit Scripts Hyoscyamine (Levsin) 1 TAB PO Q4 PRN ABDOMINAL SPASMS #40 TAB (Marguerite Foster) PA/A[employer]ICS [employer] FITNESS INSTRUCTOR Co-Sign Statement Statement: ED Attending supervision documentation- I saw and evaluated the patient. I have also reviewed all the pertinent lab results and diagnostic results. I agree with the findings and the plan of care as documented in the PA's/AQUATICS [employer] FITNESS INSTRUCTOR's documentation. X I have reviewed the ED Record and agree with the PA's/AQUATICS GROUP FITNESS INSTRUCTOR's documentation. [] Additions or exceptions (if any) to the PAs/AQUATICS GROUP FITNESS INSTRUCTOR's note and plan are summarized below: [] (Manuel PETER,Douglas)
--- NOTE | 2017-07-07 10:25 | RADIOLOGY REPORT ---
EXAMINATION: XR ABDOMEN CLINICAL INDICATION: Recently started on fiber, worsening abdominal pain. COMPARISON: Plain film views of the sacrum and coccyx dated 04/14/2017. CT scan of the abdomen and pelvis dated 05/28/2017. TECHNIQUE: AP view of the abdomen. FINDINGS: There is complex scoliosis of the thoracolumbar spine with a substantial rotatory component involving the upper lumbar spine, as well as compensatory bulky osteophyte formation. Gas is present throughout visualized portions of the colon and within the rectosigmoid region. No dilated gas-filled small bowel loops are noted. No soft tissue calcifications are identified. IMPRESSION: Nonobstructive bowel gas pattern.
[2017-07-07 10:47] LABS: ABSOLUTE BASOPHIL COUNT 0 /CUMM (0.0-0.2); ABSOLUTE EOSINOPHIL COUNT 0 /CUMM (0.0-0.7); ABSOLUTE GRANULOCYTE CT 6.2 /CUMM (1.4-6.5); ABSOLUTE LYMPH COUNT 1.1 /CUMM (1.2-3.4); ABSOLUTE MONOCYTE COUNT 0.5 /CUMM (0.10-0.60); BASOPHIL % 0.4 % (0.0-2.0); EOSINOPHIL % 0.3 % (0-5); GRANULOCYTE % 78.6 % (42.2-75.2); HEMATOCRIT 40.6 % (37-47); MEAN CORPUSCULAR HGB 28.4 PG (27.0-31.0); MEAN CORPUSCULAR HGB CONC 32.8 G/DL (33.0-37.0); MEAN CORPUSCULAR VOLUME 86.6 FL (81.0-99.0); MEAN PLATELET VOLUME 11.3 FL (7.4-10.4); PLATELET COUNT 160 /CUMM (130-400); RBC DISTRIBUTION WIDTH 14.1 % (11.5-14.5); WHITE BLOOD CELL COUNT 7.9 /CUMM (4.8-10.8)
[2017-07-07] MEDS ORDERED: LEVSIN0.125 M1 PO (11:31)
[2017-07-07 14:17] VITALS: BP 140/78
--- NOTE | 2017-07-07 14:41 | ED PSYCH CRISIS CONSULTATION ---
Crisis Consult Basic Assessment Date of Consult: 07/07/17 Responsible Person/Accompanied By: brother Insurance Authorization: Insurance #1: Insurance name: MEDICARE A Phone number: Policy number: [id number] Group number: Authorization number: ED Provider: Patient's ED Provider: Marguerite Foster Primary Care Physician: Patient's PCP: Jelena Milian MD PCP's Chief Complaint: Abdominal Pain/Flank Pain Patient's Quote: no statement Present Illness: Patient is a 56yo female with cerebral palsy, irritable bowel syndrome presenting to the emergency department with chief complaint of abdominal pain since last night and requesting to speak with a SW. Pt presents with slight motor speech impairment. Pt has hx of similar pain in the past. Patient reports that she's been seen and evaluated multiple times for the same area and reports her at home medication only helped slightly. She reports anxiety and but denies depression. She denies SI/HI/AH/VH at present. No hx of psych or susbtance abuse. No family hx of psych of substance abuse. No hx of suicide attempts or self harm behavior. Per pt she is proescribed medical marijuana for the abdominal pain. Her brother stated he is concerned as she "can't DEAL WITH it anymore". The brother reports that usually IV Ativan helps with the discomfort. Abdominal pain started 20 years ago after a stressful situation. Pt has hx of heart operation in 2008. This caption writer spoke with pt and her brohter about outpatient serivces. Pt is agreeable to 1:1 counseling. The brother is interested in pain management referrals and more support. Pt's UTOX is positive for barbituates and cannabis - prescribed. BAL is negative. Pt is prescribed : baby aspirin 81 mg protanix 40 mg clestor 20 mg [id number] mg lorazepam 1 mg hyoscyamine 125 mg boniva 150 mg calcium V D GI cocktail Pt lives with her brother and sister. Hx of working at the [employer] for 13 years but ended up quitting. Pt is never . No children. Graduated [employer] . Denies hx of learnign disablities. Case reviewed with Dr. Selby and recommends outpatient referrals. This caption writer provided pt with outpaitent counseling services , appointment with OPS and 2- 1-1 for additional supports. Patient's Address: [address] [place] [address] Other Phone Number: Who Do You Live With? Brother Family/Informants Interviewed: Romeo- brother , face to face interview Allergies - Coded Allergies: No Known Allergies (11/06/16) Current Medications - Scheduled Medications Aspirin (Children's Aspirin) 81 MG TAB.CHEW 1 TAB PO DAILY HEART/BLOOD ( Reported) Entered as Reported by DELVIS LIN on 09/17/14 1645 Calcium (Elemental-Fr Calcarb) (Calcium) 600 MG CALCIUM (1,500 MG) TABLET 2 TAB PO DAILY SUPPLEMENT (Reported) Entered as Reported by Neda Romero on 01/13/16 191 Cholecalciferol (Vitamin D3) (Vitamin D-3) 2,000 UNIT TABLET 1 TAB PO DAILY SUPPLEMENT (Reported) Entered as Reported by Neda Romero on 01/13/16 191 Fexofenadine HCl (Jonna Allergy) 180 MG TABLET 1 TAB PO DAILY ALLERGIES ( Reported) Entered as Reported by Neda Romero on 06/27/15 1837 Ibandronate Sodium (Boniva) 150 MG TABLET 1 TAB PO Q30D BONES #3 (Reported) Entered as Reported by Neda Romero on 08/23/16 1900 LORazepam (Ativan) 1 MG TABLET 1 TAB PO BID STRESS (Reported) Entered as Reported by Neda Romero on 03/29/17 1456 Pantoprazole Sodium 40 MG TABLET.DR 1 TAB PO DAILY GI (Reported) Entered as Reported by FANI RIVERA on 11/26/13 1342 Rosuvastatin Calcium (Crestor) 20 MG TABLET 1 TAB PO DAILY CHOLESTEROL 90 Days (Reported) Entered as Reported by Neda Romero on 03/29/17 1457 Scheduled PRN Medications Hyoscyamine (Levsin) 0.125 MG TABLET 1 TAB PO Q4 PRN ABDOMINAL SPASMS #40 TAB Prescribed by Marguerite Foster on 07/07/17 Hyoscyamine Sulfate (Levsin-Sl) 0.125 MG TAB.SUBL 1 TAB SL PRN GI #60 ( Reported) Entered as Reported by Neda Romero on 08/23/16 1859 Laboratory Results: Laboratory Tests 07/07/17 1208: Urine Opiates Screen < 100.00, Methadone Screen < 40, Barbiturate Screen 244 H, Ur Phencyclidine Scrn < 6.00, Amphetamines Screen < 100, U Benzodiazepines Scrn < 85, Urine Cocaine Screen < 50, Urine Cannabis Screen > 80.00 H, Urinalysis LIGHT H, Urine Color YEL, Urine Clarity CLEAR, Urine pH 8.0, Ur Specific [place]mage 1.015, Urine Protein NEG, Urine Ketones NEG, Urine Nitrite NEG, Urine Bilirubin NEG, Urine Urobilinogen 0.2, Ur Leukocyte Esterase NEG, Ur Microscopic SEDIMENT EXAMINED, Urine RBC 5-10 H, Urine WBC RARE, Ur Epithelial Cells FEW, Urine Bacteria FEW H, Urine Hemoglobin SMALL H, Urine Glucose NEG 07/07/17 1038: Anion Gap 16, Estimated GFR > 60, BUN/Creatinine Ratio 35.0 H, Glucose 80, Calcium 9.6, Total Bilirubin 1.3, AST 20, ALT 28, Alkaline Phosphatase 69, Total Protein 7.3, Albumin 4.4, Globulin 2.9, Albumin/Globulin Ratio 1.5, Amylase 177 H, Lipase 323 H, CBC w Diff NO MAN DIFF REQ, RBC 4.70, MCV 86.6, MCH 28.4, RDW 14.1, MPV 11.3 H, Gran % 78.6 H, Lymphocytes % 13.8 L, Monocytes % 6.9, Eosinophils % 0.3, Basophils % 0.4, Absolute Granulocytes 6.2, Absolute Lymphocytes 1.1 L, Absolute Monocytes 0.5, Absolute Eosinophils 0, Absolute Basophils 0, PUBS MCHC 32.8 L, Serum Alcohol < 10.0 Past History Past Medical History Neurological: CEREBRAL PALSY EENT: allergies Cardiovascular: hyperlipidemia, MITRAL VALVE REPAIR Respiratory: NONE Gastrointestinal: GERD, irritable bowel syndrome Hepatic: NONE Renal: NONE Musculoskeletal: NONE Psychiatric: NONE Endocrine: NONE Blood Disorders: 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 Past Surgical History Surgical History: CARDIAC VALVE Psychosocial History Strengths/Capabilities: seeking tx for worsening anxiety and depression Physical Limitations (Interventions): yes, wheel chair Psychiatric Treatment History Psych Treatment Psychiatric Treatment No Inpatient Treatment No Outpatient Treatment No Diagnosis by History: never diagnosed Substance Use/Abuse History Drug Use/Abuse Substances Used/Abused No Substance Abuse Treatment Substance Abuse Treatment Past Substance Abuse [place] No Inpatient Treatment No Outpatient Treatment No Comments: NA Current Mental Status Mental Status Orientation: Person, Place, Situation Affect: Anxious Speech: Pressured Neuro-vegetative: Appetite Decreased Appearance Appearance- Dress/Hygiene: Pt is dressed in casual street clothes Behaviors Thought Process: WNL Thought Content: WNL Memory: WNL Insight: WNL SI/HI Risk Assessment Past Suicidal Ideation/Attempts No Current Suicidal Ideation/Att No Past Homicidal Ideation/Att: No Current Homicidal Ideation/Attempts No Degree of Intent: None Risk Factors: chronic/serious med cond., high anxiety/distress Lethality Ratin (mild) PTSD Checklist PTSD Done? pt unable to participate ED Management Sitter: No Restraints: No DSM5/PS Stressors/Medical Prob Diagnosis' (DSM 5, Stressors, Medical): F41.9 unspecified anxiety disorder F32.9 unspecified depression medical: cerebal palsy, IBS psychosocial stressors: chronic medical problems Current GAF: 44 Departure Disposition Psych Medical Clearance Date: 07/07/17 Medically Cleared at: 1336 Time Started: 1336 Time Ended: 1446 Psychiatrist Consulted: Nathan Selby MD Date Disposition Established: 07/07/17 Time Disposition Established: 1446 Plan for Disposition - Modality: Outpatient Facility: [facility] Follow-up Appt Date: 07/14/17 Follow-Up Appt Time: 1400 Contact: Outpatient Telephone: [phone] Rationale for Disposition: Pt denies SI/HI/AH/VH at present. She hx no psychiatric hx . Case reviewed with Dr. Selby and recommends outpatient referrals. This caption writer provided pt with outpaitent counseling services , appointment with OPS and 2-1-1 for additional supports. 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 Referrals Rukhsana PETER,Jelena Jain (PCP/Family)
== END 2017-07-07 15:12 ==
LOC: ERH 08:44
PROVIDERS: Physician Assistant
DX: K85.90 Acute pancreatitis without necrosis or infection, unspecified (principal); F41.9 Anxiety disorder, unspecified; Z72.89 Other problems related to lifestyle
CPT/HCPCS: 74018; 80307; 81001; G0463; G0480

== ENCOUNTER 2017-07-09 08:36 | Emergency (ER) | payer OTHER, MEDICARE ==
[~2017-07-09] VITALS: Ht 167.6 cm; Wt 50.3 kg
--- NOTE | 2017-07-09 08:43 | ED GI/GU/ABDOMINAL COMPLAINT ---
History of Present Illness General Chief Complaint: Abdominal Pain/Flank Pain Stated Complaint: BIBA FOR ABD PAIN Source: patient, family, old records Exam Limitations: no limitations Vital Signs & Intake/Output Vital Signs & Intake/Output Vital Signs Date Time Temp Pulse Resp B/P B/P Pulse O2 O2 Flow FiO2 Mean Ox Delivery Rate 07/09 1206 80 20 148/80 96 Room Air 07/09 0849 96.8 82 18 164/82 96 Room Air Allergies Coded Allergies: No Known Allergies (11/06/16) Reconcile Medications Aspirin (Children's Aspirin) 81 MG TAB.CHEW 1 TAB PO DAILY HEART/BLOOD ( Reported) Calcium (Elemental-Fr Calcarb) (Calcium) 600 MG CALCIUM (1,500 MG) TABLET 2 TAB PO DAILY SUPPLEMENT (Reported) Cholecalciferol (Vitamin D3) (Vitamin D-3) 2,000 UNIT TABLET 1 TAB PO DAILY SUPPLEMENT (Reported) Fexofenadine HCl (Jonna Allergy) 180 MG TABLET 1 TAB PO DAILY ALLERGIES ( Reported) Hyoscyamine (Levsin) 0.125 MG TABLET 1 TAB PO Q4 PRN ABDOMINAL SPASMS Hyoscyamine Sulfate (Levsin-Sl) 0.125 MG TAB.SUBL 1 TAB SL PRN GI (Reported) Ibandronate Sodium (Boniva) 150 MG TABLET 1 TAB PO Q30D BONES (Reported) on the same date with a full glass of water at least 30 minutes before first food or drink of the day; remain in an upright posi LORazepam (Ativan) 1 MG TABLET 1 TAB PO BID STRESS (Reported) Pantoprazole Sodium 40 MG TABLET.DR 1 TAB PO DAILY GI (Reported) Rosuvastatin Calcium (Crestor) 20 MG TABLET 1 TAB PO DAILY CHOLESTEROL ( Reported) Triage Nurses Notes Reviewed? yes ? N Is pt currently ? No Onset: Gradual Duration: day(s): Timing: recent history Quality/Severity: moderate Severity Numbers: 3 Location: epigastric Prior Abdominal Problems: similar symptoms HPI: 56yo female with hx of cerebral palsy, IBS, GERD, chronic abdominal pain presents to ED complaining of abdominal pain beginning 6-7 days ago. Abdominal pain described as pressure, 3/10, intermitent, epigastric area radiating to generalized abdomen. Pain is the same as prior episodes of abd pain. Patient's brother reports that this month patient's abdominal symptoms have been worsening , she has been in the emergency department 4 times recently. Patient's symptoms totally resolve after GI cocktail and Ativan, patient has not taken these medications at home you today. Patient has an appointment scheduled for an endoscopy with her GI doctor as well as the patient psychiatry/therapy scheduled for next week. Brother especially because patient has had intensive workup within the past several years however they have no definitive diagnosis. The patient denies vomiting, diarrhea, constipation, fevers, chills. (Rachele Pillai) Past History Travel History Traveled to [place] past 21 day No Medical History Any Pertinent Medical History? 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 No (Rachele Pillai) Review of Systems Review of Systems Constitutional: Reports: no symptoms. EENTM: Reports: no symptoms. Respiratory: Reports: no symptoms. Cardiovascular: Reports: no symptoms. GI: Reports: see HPI. Genitourinary: Reports: no symptoms. Musculoskeletal: Reports: no symptoms. Skin: Reports: no symptoms. Neurological/Psychological: Reports: no symptoms. Hematologic/Endocrine: Reports: no symptoms. Immunologic/Allergic: Reports: no symptoms. All Other Systems: Reviewed and Negative (Rachele Pillai) Physical Exam Physical Exam General Appearance: well developed/nourished, no apparent distress, alert, awake Head: atraumatic, normal appearance Eyes: Bilateral: normal appearance. Ears, Nose, Throat, Mouth: hearing grossly normal Neck: normal inspection, supple, full range of motion Respiratory: normal breath sounds, no respiratory distress, lungs clear Cardiovascular: regular rate/rhythm Gastrointestinal: normal bowel sounds, soft, non-tender, no organomegaly Back: normal inspection, normal range of motion Extremities: normal range of motion Neurologic/Psych: awake, alert, oriented x 3 Skin: intact, normal color, warm/dry Core Measures ACS in differential dx? No Sepsis Present: No Sepsis Focused Exam Completed? No (Rachele Pillai) Progress Differential Diagnosis: appendicitis, biliary colic, bowel obstruction, colon cancer, cholecystitis, diverticulitis, gastritis, hernia, inflamm bowel dis, kidney stone, pancreatitis, peptic ulcer, PUD/GERD, perforated viscous, SBO Plan of Care: Orders Procedure Date/time Status COMPREHENSIVE METABOLIC PANEL 07/09 1046 Complete CBC WITHOUT DIFFERENTIAL 07/09 1046 Complete Laboratory Tests 07/09/17 1050: Anion Gap 16, Estimated GFR > 60, BUN/Creatinine Ratio 31.4 H, Glucose 83, Calcium 9.9, Total Bilirubin 1.9 H, AST 19, ALT 34, Alkaline Phosphatase 70, Total Protein 7.4, Albumin 4.5, Globulin 2.9, Albumin/Globulin Ratio 1.6, CBC w Diff NO MAN DIFF REQ, RBC 4.60, MCV 87.0, MCH 28.8, MCHC 33.2, RDW 14.2, MPV 10.5 H, Gran % 81.6 H, Lymphocytes % 12.0 L, Monocytes % 6.0, Eosinophils % 0.1, Basophils % 0.3, Absolute Granulocytes 6.8 H, Absolute Lymphocytes 1.0 L, Absolute Monocytes 0.5, Absolute Eosinophils 0, Absolute Basophils 0 Patient's old records reviewed, she had prior CT scan 1 month ago which was within normal limits, she has had prior ultrasounds of her abdomen without abnormality. Patient was seen and evaluated here 2 days ago for similar abdominal pain, labs were drawn at that time. Patient medicated with GI cocktail and IV Ativan. Following these medications she reports resolution of her abdominal pain. Patient's labs show elevated bilirubin, compared to prior studies bilirubin has been elevated in the past, also elevated creatinine likely relating to mild dehydration. Patient instructed to increase fluids and follow- up with her manager intel. There is also recommended she follow up with neurologist regarding her cerebral palsy as this may possibly be related to her chronic abdominal pain. Patient no acute distress, she feels ready to go home at this time, she is nontoxic appearing. The patient and her brother agree with the plan of care. The patient has chronic pain, abdominal exam is without tenderness, there is low suspicion for acute intra-abdominal pathology at this time. Initial ED EKG: none (Lilliam WOODS,Rachele Carolina) Departure Departure Disposition: HOME OR SELF CARE Condition: Stable Clinical Impression Primary Impression: Abdominal pain Qualifiers: Abdominal location: epigastric Qualified Code: R10.13 - Epigastric pain Referrals: Rukhsana PETER,Jelena Jain (PCP/Family) Additional Instructions: Follow-up with gastroenterology as discussed. You may also follow-up with neurologist who specializes in cerebral palsy. Continue outpatient psychiatry follow-up on Thursday. Return to the emergency Department with any worsening symptoms or other concerns. Please note that there might be incidental findings in your evaluation that are unrelated to the current emergency department visit. Please notify your primary care doctor about this emergency department visit in order to obtain and review all of the testing performed so that these incidental findings can be monitored as needed. If you had an x-ray performed, please understand that some fractures may not be seen on the initial set of x-rays. If your symptoms persist you might need a repeat set of x-rays to check for such a fracture. If you had a laceration evaluated, please understand that foreign bodies such as glass or wood may not be visible to the naked eye or on plain x-rays. If the wound becomes red, swollen, increasingly more painful or if there is any drainage from the wound, please have it reevaluated by a physician for the possibility of a retained foreign body. If you're unable to follow up as outlined in the discharge instructions please return to the emergency department. Thank you for choosing the [facility] Emergency Department for your care. It was a pleasure to serve you today. Departure Forms: Customer Survey General Discharge Information (Lilliam WOODS,Rachele Carolina) PA/FURNITURE RESTORER Co-Sign Statement Statement: ED Attending supervision documentation- [] I saw and evaluated the patient. I have also reviewed all the pertinent lab results and diagnostic results. I agree with the findings and the plan of care as documented in the PA's/FURNITURE RESTORER's documentation. [X] I have reviewed the ED Record and agree with the PA's/FURNITURE RESTORER's documentation. [] Additions or exceptions (if any) to the PAs/FURNITURE RESTORER's note and plan are summarized below: [] (Reuben Moreira DO)
[2017-07-09 11:00] LABS: ABSOLUTE BASOPHIL COUNT 0 /CUMM (0.0-0.2); ABSOLUTE EOSINOPHIL COUNT 0 /CUMM (0.0-0.7); ABSOLUTE GRANULOCYTE CT 6.8 /CUMM (1.4-6.5); ABSOLUTE MONOCYTE COUNT 0.5 /CUMM (0.10-0.60); BASOPHIL % 0.3 % (0.0-2.0); EOSINOPHIL % 0.1 % (0-5); GRANULOCYTE % 81.6 % (42.2-75.2); MEAN CORPUSCULAR HGB 28.8 PG (27.0-31.0); MEAN CORPUSCULAR HGB CONC 33.2 G/DL (33.0-37.0); MEAN PLATELET VOLUME 10.5 FL (7.4-10.4); PLATELET COUNT 140 /CUMM (130-400); RBC DISTRIBUTION WIDTH 14.2 % (11.5-14.5); WHITE BLOOD CELL COUNT 8.3 /CUMM (4.8-10.8)
[2017-07-09 12:06] VITALS: BP 148/80
== END 2017-07-09 12:31 ==
LOC: ERH 08:36
PROVIDERS: Physician Assistant
DX: R10.13 Epigastric pain (principal)
CPT/HCPCS: 96374

== ENCOUNTER 2017-08-22 18:25 | Emergency (ER) | payer OTHER, MEDICARE ==
[~2017-08-22 18:25] MED LIST changes: +PEPTO-BISM525 MG/15 PO; +REGLAN10 M1 PO
--- NOTE | 2017-08-22 20:28 | ED GI/GU/ABDOMINAL COMPLAINT ---
History of Present Illness General Chief Complaint: Abdominal Pain/Flank Pain Stated Complaint: STOMACH PAIN Source: patient, family Exam Limitations: no limitations Vital Signs & Intake/Output Vital Signs & Intake/Output ED Intake and Output 08/23 0000 08/22 1200 Intake Total 0 Output Total Balance 0 Intake, Oral 0 Allergies Coded Allergies: No Known Allergies (11/06/16) Reconcile Medications Aspirin (Children's Aspirin) 81 MG TAB.CHEW 1 TAB PO DAILY HEART/BLOOD ( Reported) Bismuth Subsalicylate (Pepto-Bismol) 525 MG/15 ML ORAL.SUSP 30 ML PO DAILY GI PAIN (Reported) Calcium (Elemental-Fr Calcarb) (Calcium) 600 MG CALCIUM (1,500 MG) TABLET 2 TAB PO DAILY SUPPLEMENT (Reported) Cholecalciferol (Vitamin D3) (Vitamin D-3) 2,000 UNIT TABLET 1 TAB PO DAILY SUPPLEMENT (Reported) Fexofenadine HCl (Jonna Allergy) 180 MG TABLET 1 TAB PO DAILY ALLERGIES ( Reported) [GI COCKTAIL] 60 ML PO DAILY GI PAIN (Reported) Hyoscyamine (Levsin) 0.125 MG TABLET 1 TAB PO Q4 PRN ABDOMINAL SPASMS Ibandronate Sodium (Boniva) 150 MG TABLET 1 TAB PO Q30D BONES (Reported) on the same date with a full glass of water at least 30 minutes before first food or drink of the day; remain in an upright posi Lidocaine HCl (Lidocaine HCl Viscous) 2 % SOLUTION 15 ML PO 4 TIMES/DAY STOMACH UPSET LORazepam (Ativan) 1 MG TABLET 1 TAB PO BID STRESS (Reported) Metoclopramide HCl (Reglan) 10 MG TABLET 1 TAB PO 4 TIMES/DAY PRN abdominal pain 30 minutes before meals and bedtime Pantoprazole Sodium 40 MG TABLET.DR 1 TAB PO DAILY GI (Reported) Rosuvastatin Calcium (Crestor) 20 MG TABLET 1 TAB PO DAILY CHOLESTEROL ( Reported) Triage Note: PT TO TRIAGE C/O UPPER ABD PAIN THAT BEGAN TODAY. DENIES N/V/D. PER BROTHER PT HAS STRUGGLED WITH UPPER ABD PAIN FOR 15 YEARS. PER BROTHER PAIN USUALLY SUBSIDES WITH GI COCKTAIL AND 1MG IV ATIVAN. PT HX: CEREBRAL PALSY. EVAL'D BY MD TENA. Triage Nurses Notes Reviewed? yes ? n Is pt currently ? No Timing: recent history Quality/Severity: sharpness, severe Radiation: no radiation Activities at Onset: rest HPI: Patient presents for evaluation of a typical upper abdominal pain episode that began about 4 PM today. Patient states that she has had multiple episodes in the past and has an endoscopy pending with her GI specialist later this month. She states she tried a GI cocktail with some improvement but then the pain worsened again. She took other medication as prescribed by her GI specialist with resolution of pain. The pain then returned again prompting her to come to the emergency department. She states this is atypical pain episode for further seems to be no unusual symptoms (patient denies fever, cold symptoms, nausea, vomiting or diarrhea). Past History Travel History Traveled to [place] past 21 day No Medical History Any Pertinent Medical History? 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 No Review of Systems Review of Systems Constitutional: Reports: no symptoms. EENTM: Reports: no symptoms. Respiratory: Reports: no symptoms. Cardiovascular: Reports: no symptoms. GI: Reports: see HPI. Genitourinary: Reports: no symptoms. Musculoskeletal: Reports: no symptoms. Skin: Reports: no symptoms. Neurological/Psychological: Reports: no symptoms. Hematologic/Endocrine: Reports: no symptoms. Immunologic/Allergic: Reports: no symptoms. All Other Systems: Reviewed and Negative Physical Exam Physical Exam Gastrointestinal: see below Comments: Gen.: Well-nourished, well-developed, no acute respiratory distress. Head: Normocephalic, atraumatic. Eyes: Normal inspection bilaterally Ears: Normal inspection bilaterally Nose: Normal inspection Throat/mouth : Moist mucosa Neck: Supple, full range of motion, no goiter Lungs: Quiet respirations Abdomen: Soft nontender nondistended with normal bowel sounds Back: Normal range of motion Extremities: Normal range of motion grossly, no cyanosis clubbing or edema of the upper extremities Neurologic: Cranial nerves grossly intact, speech is clear dysarthric secondary to cerebral palsy but otherwise appropriate Skin: warm and dry Psychiatric: Calm, cooperative, normal affect Core Measures ACS in differential dx? No Sepsis Present: No Sepsis Focused Exam Completed? No Progress Differential Diagnosis: obstruction, pancreatitis, biliary colic, peptic ulcer disease, acute exacerbation of chronic abdominal pain, esophageal spasms Plan of Care: Laboratory Tests 08/22/172055: Anion Gap 8, Estimated GFR > 60, BUN/Creatinine Ratio 18.8, Glucose 106 H, Calcium 9.6, Total Bilirubin 1.1, AST 20, ALT 19, Alkaline Phosphatase 58, Total Protein 6.9, Albumin 4.0, Globulin 2.9, Albumin/Globulin Ratio 1.4, Lipase 60, CBC w Diff NO MAN DIFF REQ, RBC 4.37, MCV 87.0, MCH 29.0, MCHC 33.3, RDW 13.6, MPV 10.9 H, Gran % 73.5, Lymphocytes % 18.4 L, Monocytes % 7.0, Eosinophils % 0.5, Basophils % 0.6, Absolute Granulocytes 6.3, Absolute Lymphocytes 1.6, Absolute Monocytes 0.6, Absolute Eosinophils 0, Absolute Basophils 0 Initial ED EKG: none Comments: 08/22/2017 9:06:20 PM Emily is feeling better and wishes to go home. Given that this was a typical episode for her, emergency department testing is likely to be of low yield. She agreed that testing was not necessary under the circumstances. Departure Departure Disposition: HOME OR SELF CARE Condition: Stable Clinical Impression Primary Impression: Abdominal pain, chronic, epigastric Referrals: Rukhsana PETER,Jelena Jain (PCP/Family) Additional Instructions: Continue your current medications. Follow-up with your GI specialist for endoscopy as scheduled but to call you GI specialist on Thursday to notify him of this emergency department visit. Likewise, notify your primary care physician of this emergency department visit and treatment plan. Return if any concerns or sudden worsening. Thank you for choosing the [facility] Emergency Department for your care. It was a pleasure to serve you today. Reuben Hughes M.D. [facility] Departure Forms: Customer Survey General Discharge Information
[2017-08-22 21:02] LABS: ABSOLUTE BASOPHIL COUNT 0 /CUMM (0.0-0.2); ABSOLUTE EOSINOPHIL COUNT 0 /CUMM (0.0-0.7); ABSOLUTE GRANULOCYTE CT 6.3 /CUMM (1.4-6.5); ABSOLUTE LYMPH COUNT 1.6 /CUMM (1.2-3.4); ABSOLUTE MONOCYTE COUNT 0.6 /CUMM (0.10-0.60); BASOPHIL % 0.6 % (0.0-2.0); EOSINOPHIL % 0.5 % (0-5); GRANULOCYTE % 73.5 % (42.2-75.2); MEAN CORPUSCULAR HGB CONC 33.3 G/DL (33.0-37.0); MEAN PLATELET VOLUME 10.9 FL (7.4-10.4); PLATELET COUNT 145 /CUMM (130-400); RBC DISTRIBUTION WIDTH 13.6 % (11.5-14.5); RED BLOOD CELL CT 4.37 /CUMM (4.20-5.40); WHITE BLOOD CELL COUNT 8.5 /CUMM (4.8-10.8)
== END 2017-08-22 21:28 ==
LOC: ERH 18:25
PROVIDERS: Internal Medicine
DX: R10.13 Epigastric pain (principal); G89.29 Other chronic pain
CPT/HCPCS: 96372

== ENCOUNTER 2017-09-16 06:26 | Emergency (ER) | payer OTHER, MEDICARE ==
[~2017-09-16] VITALS: Ht 198.1 cm; Wt 50.3 kg
[~2017-09-16 06:26] MED LIST changes: +DICYCLOMINE HCL10 M1 PO
--- NOTE | 2017-09-16 07:39 | ED GI/GU/ABDOMINAL COMPLAINT ---
History of Present Illness General Chief Complaint: Abdominal Pain/Flank Pain Stated Complaint: ABD PAIN Source: patient, Exam Limitations: no limitations Vital Signs & Intake/Output Vital Signs & Intake/Output Vital Signs Date Time Temp Pulse Resp B/P B/P Pulse O2 O2 Flow FiO2 Mean Ox Delivery Rate 09/16 0712 96.6 88 18 137/84 97 Room Air Room Air Allergies Coded Allergies: No Known Allergies (09/13/17) Reconcile Medications Aspirin (Children's Aspirin) 81 MG TAB.CHEW 1 TAB PO DAILY HEART/BLOOD ( Reported) Calcium (Elemental-Fr Calcarb) (Calcium) 600 MG CALCIUM (1,500 MG) TABLET 2 TAB PO DAILY SUPPLEMENT (Reported) Cholecalciferol (Vitamin D3) (Vitamin D-3) 2,000 UNIT TABLET 1 TAB PO DAILY SUPPLEMENT (Reported) Fexofenadine HCl (Jonna Allergy) 180 MG TABLET 1 TAB PO DAILY ALLERGIES ( Reported) [GI COCKTAIL] 60 ML PO DAILY PRN GI (Reported) Hyoscyamine (Levsin) 0.125 MG TABLET 1 TAB PO Q4 PRN ABDOMINAL SPASMS Ibandronate Sodium (Boniva) 150 MG TABLET 1 TAB PO Q30D BONES (Reported) on the same date with a full glass of water at least 30 minutes before first food or drink of the day; remain in an upright posi LORazepam (Ativan) 1 MG TABLET 1 TAB PO BID STRESS (Reported) LORazepam (Ativan) 1 MG TAB 1 TAB PO BID PRN ABDOMINAL PAIN TEN... [id number] Pantoprazole Sodium 40 MG TABLET.DR 1 TAB PO DAILY GI (Reported) Rosuvastatin Calcium (Crestor) 20 MG TABLET 1 TAB PO DAILY CHOLESTEROL ( Reported) Triage Note: PT TO ED WITH FAMILY WITH C/O MID ABD PAIN SHARP IN NATURE SINCE 0, AND ALSO C/O DIARRHEA, DENIES VOMITING. Triage Nurses Notes Reviewed? yes ? N Is pt currently ? No HPI: Patient presents for evaluation of a typical abdominal pain episode that she has suffered for years. Patient's pain described as a severe sharp mid abdominal pain that began abruptly at about 3:00 this morning. Patient took her usual medications including hyoscyamine and Ativan without improvement. Nothing seems to make the pain feel better at this point patient has had 4 nonbloody episodes of diarrhea as well. This abdominal pain episode is typical for her and although the diarrhea does not occur with the abdominal pain episode she has had diarrhea with her abdominal pain in the past. Past History Travel History Traveled to [place] past 21 day No Medical History Any Pertinent Medical History? 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 No Review of Systems Review of Systems Constitutional: Reports: no symptoms. EENTM: Reports: no symptoms. Respiratory: Reports: no symptoms. Cardiovascular: Reports: no symptoms. GI: Reports: see HPI. Genitourinary: Reports: no symptoms. Musculoskeletal: Reports: no symptoms. Skin: Reports: no symptoms. Neurological/Psychological: Reports: no symptoms. Hematologic/Endocrine: Reports: no symptoms. Immunologic/Allergic: Reports: no symptoms. All Other Systems: Reviewed and Negative Physical Exam Physical Exam Gastrointestinal: SEE BELOW Comments: Gen.: Well-nourished, well-developed, no acute respiratory distress. Thin. Head: Normocephalic, atraumatic. Eyes: Normal inspection bilaterally Ears: Normal inspection bilaterally Nose: Normal inspection Throat/mouth : Moist mucosa Neck: Supple, full range of motion, no goiter Lungs: Quiet respirations Abdomen: Soft nontender nondistended with mildly hyperactive bowel sounds Back: Normal range of motion Extremities: Normal range of motion grossly, no cyanosis clubbing or edema of the upper extremities Neurologic: Cranial nerves grossly intact, speech is dysarthric but appropriate Skin: warm and dry Psychiatric: Calm, cooperative, no apparent delusions or hallucinations Core Measures ACS in differential dx? No Sepsis Present: No Sepsis Focused Exam Completed? No Progress Differential Diagnosis: bowel obstruction, ileus, acute exacerbation of chronic abdominal pain, muscle spasms Plan of Care: Orders Procedure Date/time Status EKG 09/16 0647 Active Laboratory Tests 09/16/17 0647: Troponin I Cancelled, CBC w Diff Cancelled, WBC Cancelled, RBC Cancelled, Hgb Cancelled, Hct Cancelled, MCV Cancelled, MCH Cancelled, MCHC Cancelled, RDW Cancelled, Plt Count Cancelled, MPV Cancelled Initial ED EKG: none Comments: Given that this is a typical abdominal pain episode and given that the patient has had a recent workup including blood tests and abdominal x-ray, it was decided that the patient would simply receive symptomatic treatment. 09/16/2017 9:29:04 AM patient's nurse reports that Emily is now sleeping comfortably. I believe she is ready for discharge. Departure Departure Disposition: HOME OR SELF CARE Condition: Stable Clinical Impression Primary Impression: Abdominal wall pain Referrals: Rukhsana PETER,Jelena Jain (PCP/Family) Additional Instructions: Continue your current medications and follow-up with your gastrointestinal specialist as arranged. Return if any concerns or sudden worsening. Departure Forms: Customer Survey General Discharge Information
[2017-09-16 09:34] VITALS: BP 133/74
== END 2017-09-16 10:16 ==
LOC: ERH 06:26
DX: R10.9 Unspecified abdominal pain (principal)

== ENCOUNTER 2017-12-14 07:11 | Emergency (ER) | payer OTHER, MEDICARE ==
[~2017-12-14] VITALS: Ht 167.6 cm; Wt 50.3 kg
[~2017-12-14 07:11] MED LIST changes: +ALLOPURINOL300 M1 PO; +AMARYL4 M1 PO; +CARDIZEM CD120 M2 PO; +CYMBALTA60 M1 PO; +DITROPAN XL10 M1 PO; +ELIQUIS5 M1 PO; +JANUVIA100 M1 PO; +METFORMIN HCL1000 M1 PO; +METOPROLOL TART25 M1 PO; +OMEPRAZOLE20 M2 PO; +REQUIP1 M1 PO; +ROBAXIN-750750 M1 PO; +UROCIT-K15 ME1 PO
--- NOTE | 2017-12-14 09:17 | ED GI/GU/ABDOMINAL COMPLAINT ---
History of Present Illness General Chief Complaint: Abdominal Pain/Flank Pain Stated Complaint: ABD PAIN X2 HR Source: patient, family, old records Exam Limitations: no limitations Vital Signs & Intake/Output Vital Signs & Intake/Output Vital Signs Date Time Temp Pulse Resp B/P B/P Pulse O2 O2 Flow FiO2 Mean Ox Delivery Rate 12/14 0937 98.1 84 20 120/70 99 Room Air 12/14 0717 97.4 97 20 142/81 96 Room Air Allergies Coded Allergies: No Known Allergies (12/02/17) Reconcile Medications Aspirin (Children's Aspirin) 81 MG TAB.CHEW 1 TAB PO DAILY HEART/BLOOD ( Reported) Calcium (Elemental-Fr Calcarb) (Calcium) 600 MG CALCIUM (1,500 MG) TABLET 2 TAB PO DAILY SUPPLEMENT (Reported) Cholecalciferol (Vitamin D3) (Vitamin D-3) 2,000 UNIT TABLET 1 TAB PO DAILY SUPPLEMENT (Reported) Fexofenadine HCl (Jonna Allergy) 180 MG TABLET 1 TAB PO DAILY ALLERGIES ( Reported) Hyoscyamine (Levsin) 0.125 MG TABLET 1 TAB PO Q4 PRN ABDOMINAL SPASMS Ibandronate Sodium (Boniva) 150 MG TABLET 1 TAB PO Q30D BONES (Reported) on the same date with a full glass of water at least 30 minutes before first food or drink of the day; remain in an upright posi LORazepam (Ativan) 1 MG TABLET 1 TAB PO BID STRESS (Reported) LORazepam (Ativan) 1 MG TAB 1 TAB PO BID PRN ABDOMINAL PAIN TEN... [id number] Pantoprazole Sodium 40 MG TABLET.DR 1 TAB PO DAILY GI (Reported) Rosuvastatin Calcium (Crestor) 20 MG TABLET 1 TAB PO DAILY CHOLESTEROL ( Reported) Triage Note: PT TO ED WITH BROTHER FOR C/O "MY STOMACH" X A FEW HOURS. DENIES N/V/D. Triage Nurses Notes Reviewed? yes LMP (ages 10-50): post menopausal ? n Is pt currently ? No Onset: Just prior to arrival Duration: hour(s):, better, constant, waxing and waning Timing: recent history Quality/Severity: aching, burning, moderate Location: epigastric Radiation: no radiation Activities at Onset: rest Prior Abdominal Problems: similar symptoms Past Sexual History: Unobtainable at this time Modifying Factors: Improves With: other (ativan). Associated Symptoms: abdominal pain HPI: 2 hours prior to admission patient complains of epigastric abdominal pain mild to moderate waxing and waning achy and burning. She took 1 mg of Ativan with mild to moderate improvement of the pain. She denies fever chills nausea vomiting diarrhea chest pain cough shortness of breath headache dysuria rash bleeding. Past History Travel History Traveled to [place] past 21 day No Medical History Any Pertinent Medical History? 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 No Review of Systems Review of Systems Constitutional: Reports: no symptoms. EENTM: Reports: no symptoms. Respiratory: Reports: no symptoms. Cardiovascular: Reports: no symptoms. GI: Reports: see HPI, abdominal pain. Genitourinary: Reports: no symptoms. Musculoskeletal: Reports: no symptoms. Skin: Reports: no symptoms. Neurological/Psychological: Reports: no symptoms. Hematologic/Endocrine: Reports: no symptoms. Immunologic/Allergic: Reports: no symptoms. All Other Systems: Reviewed and Negative Physical Exam Physical Exam General Appearance: well developed/nourished, alert, awake, anxious, mild distress, thin Head: atraumatic, normal appearance Eyes: Bilateral: normal appearance, PERRL, EOMI, normal inspection. Ears, Nose, Throat, Mouth: hearing grossly normal, moist mucous membrane Neck: normal inspection, supple, full range of motion, normal alignment Respiratory: normal breath sounds, chest non-tender, no respiratory distress, quiet respiration, lungs clear Cardiovascular: regular rate/rhythm, normal peripheral pulses, norml femoral pulses equa Peripheral Pulses: 4+ carotid (R), 4+ carotid (L) Gastrointestinal: normal bowel sounds, soft, non-tender, no organomegaly Back: normal inspection, normal range of motion, no vertebral tenderness Extremities: normal range of motion, no ligament instability Neurologic/Psych: awake, 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 No Sepsis Present: No Sepsis Focused Exam Completed? No Progress Differential Diagnosis: gastritis Plan of Care: GI cocktail and Ativan Initial ED EKG: none Departure Departure Time of Disposition: 928 Disposition: HOME OR SELF CARE Condition: Stable Clinical Impression Primary Impression: Epigastric pain Secondary Impressions: Hiatal hernia Referrals: Rukhsana PETER,Jelena Jain (PCP/Family) Krystal PETER,Colton Roberts Departure Forms: Customer Survey General Discharge Information
[2017-12-14 09:37] VITALS: BP 120/70
[2017-12-14] MEDS ORDERED: DONNATAL TABL16.2 MG PO (18:41)
[2017-12-14] MEDS ORDERED: REGLAN10 M1 PO (18:41)
== END 2017-12-14 09:39 ==
LOC: ERH 07:11
DX: K44.9 Diaphragmatic hernia without obstruction or gangrene (principal)

== ENCOUNTER 2017-12-14 15:36 | Emergency (ER) | payer OTHER, MEDICARE ==
[~2017-12-14] VITALS: Ht 167.6 cm; Wt 50.3 kg
--- NOTE | 2017-12-14 16:55 | ED GI/GU/ABDOMINAL COMPLAINT ---
See Addendum History of Present Illness General Chief Complaint: Abdominal Pain/Flank Pain Stated Complaint: HERE THIS AM FOR SAME, WORSENING ABD. PAIN Source: patient, old records Exam Limitations: no limitations Vital Signs & Intake/Output Vital Signs & Intake/Output Vital Signs Date Time Temp Pulse Resp B/P B/P Pulse O2 O2 Flow FiO2 Mean Ox Delivery Rate 12/14 1550 97.2 94 16 147/92 97 Room Air Allergies Coded Allergies: No Known Allergies (12/02/17) Reconcile Medications Aspirin (Children's Aspirin) 81 MG TAB.CHEW 1 TAB PO DAILY HEART/BLOOD ( Reported) Calcium (Elemental-Fr Calcarb) (Calcium) 600 MG CALCIUM (1,500 MG) TABLET 2 TAB PO DAILY SUPPLEMENT (Reported) Cholecalciferol (Vitamin D3) (Vitamin D-3) 2,000 UNIT TABLET 1 TAB PO DAILY SUPPLEMENT (Reported) Fexofenadine HCl (Jonna Allergy) 180 MG TABLET 1 TAB PO DAILY ALLERGIES ( Reported) Hyoscyamine (Levsin) 0.125 MG TABLET 1 TAB PO Q4 PRN ABDOMINAL SPASMS Ibandronate Sodium (Boniva) 150 MG TABLET 1 TAB PO Q30D BONES (Reported) on the same date with a full glass of water at least 30 minutes before first food or drink of the day; remain in an upright posi LORazepam (Ativan) 1 MG TABLET 1 TAB PO BID STRESS (Reported) LORazepam (Ativan) 1 MG TAB 1 TAB PO BID PRN ABDOMINAL PAIN TEN... [id number] Metoclopramide HCl (Reglan) 10 MG TABLET 1 TAB PO 4 TIMES/DAY PRN abd pain 30 minutes before meals and bedtime Pantoprazole Sodium 40 MG TABLET.DR 1 TAB PO DAILY GI (Reported) Phenobarb/Hyoscy/Atropine/Scop ( Tablet) 16.2 MG TABLET 1 TAB PO Q6HP PRN abd pain Rosuvastatin Calcium (Crestor) 20 MG TABLET 1 TAB PO DAILY CHOLESTEROL ( Reported) Triage Note: PT STATES SHE IS HAVING WORSE ABD PAIN THAN SHE HAD THIS AM. PT WAS SEEN IN ED THIS AM AND WAS GIVEN GI COCKTAIL AND ATIVAN AND DISCHARGED TO HOME Triage Nurses Notes Reviewed? yes LMP (ages 10-50): post menopausal ? n Is pt currently ? No Onset: Just prior to arrival Duration: minute(s):, constant, continues in ED Timing: recent history Quality/Severity: aching, moderate Location: epigastric Radiation: no radiation Activities at Onset: rest Prior Abdominal Problems: similar symptoms Past Sexual History: Unobtainable at this time Modifying Factors: Worsens With: palpation. Associated Symptoms: abdominal pain HPI: Prior to admission patient complains of recurrent epigastric aching burning severe constant nonradiating. She took a GI cocktail with relief. She denies fever chills nausea vomiting diarrhea chest pain cough shortness breath headache dysuria rash bleeding. Past History Travel History Traveled to [place] past 21 day No Medical History Any Pertinent Medical History? 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 No Review of Systems Review of Systems Constitutional: Reports: no symptoms. EENTM: Reports: no symptoms. Respiratory: Reports: no symptoms. Cardiovascular: Reports: no symptoms. GI: Reports: see HPI, abdominal pain. Genitourinary: Reports: no symptoms. Musculoskeletal: Reports: no symptoms. Skin: Reports: no symptoms. Neurological/Psychological: Reports: no symptoms. Hematologic/Endocrine: Reports: no symptoms. Immunologic/Allergic: Reports: no symptoms. All Other Systems: Reviewed and Negative Physical Exam Physical Exam General Appearance: well developed/nourished, alert, awake, anxious, mild distress, thin Head: atraumatic, normal appearance Eyes: Bilateral: normal appearance, PERRL, EOMI. Ears, Nose, Throat, Mouth: hearing grossly normal, moist mucous membrane Neck: normal inspection, supple, full range of motion, normal alignment Respiratory: normal breath sounds, chest non-tender, no respiratory distress, quiet respiration, lungs clear Cardiovascular: regular rate/rhythm, normal peripheral pulses, norml femoral pulses equa Peripheral Pulses: 4+ carotid (R), 4+ carotid (L) Gastrointestinal: normal bowel sounds, soft, no organomegaly, tenderness (mild epigastric) Back: normal inspection, normal range of motion, vertebral tenderness Extremities: normal range of motion, no ligament instability Neurologic/Psych: awake, alert, oriented x 3, motor weakness, chorioathetotic movement Skin: intact, normal color, warm/dry Core Measures ACS in differential dx? No Sepsis Present: No Sepsis Focused Exam Completed? No Progress Differential Diagnosis: biliary colic, gastritis, pancreatitis, PUD/GERD Plan of Care: Orders Procedure Date/time Status LIPASE 12/14 1602 Complete COMPREHENSIVE METABOLIC PANEL 12/14 160 Complete CBC WITHOUT DIFFERENTIAL 12/14 160 Complete Laboratory Tests 12/14/17 1745: Anion Gap 9, Estimated GFR > 60, BUN/Creatinine Ratio 21.3, Glucose 83, Calcium 8.8, Total Bilirubin 2.1 H, AST 16, ALT 20, Alkaline Phosphatase 60, Total Protein 6.7, Albumin 4.0, Globulin 2.7, Albumin/Globulin Ratio 1.5, Lipase 556 H, CBC w Diff NO MAN DIFF REQ, RBC 4.78, MCV 85.4, MCH 28.3, MCHC 33.1, RDW 13.5 , MPV 11.6 H, Gran % 72.7, Lymphocytes % 17.6 L, Monocytes % 8.7, Eosinophils % 0.5, Basophils % 0.5, Absolute Granulocytes 5.7, Absolute Lymphocytes 1.4, Absolute Monocytes 0.7 H, Absolute Eosinophils 0, Absolute Basophils 0 Initial ED EKG: none Departure Departure Disposition: HOME OR SELF CARE Condition: Stable Clinical Impression Primary Impression: Elevated lipase Secondary Impressions: Cerebral palsy, athetoid, Epigastric pain, Hiatal hernia Referrals: Josephine PETER,Bryant Romero Call for neurology follow up Rukhsana PETER,Jelena Jain (PCP/Family) Krystal PETER,Colton Roberts Additional Instructions: Clear liquids for 12-24 hours until better Departure Forms: Customer Survey General Discharge Information Prescriptions: Current Visit Scripts Metoclopramide HCl (Reglan) 1 TAB PO 4 TIMES/DAY PRN abd pain #30 TAB 30 minutes before meals and bedtime Phenobarb/Hyoscy/Atropine/Scop ( Tablet) 1 TAB PO Q6HP PRN abd pain #30 TAB
[2017-12-14 18:31] LABS: ABSOLUTE BASOPHIL COUNT 0 /CUMM (0.0-0.2); ABSOLUTE EOSINOPHIL COUNT 0 /CUMM (0.0-0.7); ABSOLUTE GRANULOCYTE CT 5.7 /CUMM (1.4-6.5); ABSOLUTE LYMPH COUNT 1.4 /CUMM (1.2-3.4); ABSOLUTE MONOCYTE COUNT 0.7 /CUMM (0.10-0.60); BASOPHIL % 0.5 % (0.0-2.0); EOSINOPHIL % 0.5 % (0-5); GRANULOCYTE % 72.7 % (42.2-75.2); HEMATOCRIT 40.8 % (37-47); MEAN CORPUSCULAR HGB 28.3 PG (27.0-31.0); MEAN CORPUSCULAR HGB CONC 33.1 G/DL (33.0-37.0); MEAN CORPUSCULAR VOLUME 85.4 FL (81.0-99.0); MEAN PLATELET VOLUME 11.6 FL (7.4-10.4); PLATELET COUNT 171 /CUMM (130-400); RBC DISTRIBUTION WIDTH 13.5 % (11.5-14.5); RED BLOOD CELL CT 4.78 /CUMM (4.20-5.40); WHITE BLOOD CELL COUNT 7.9 /CUMM (4.8-10.8)
[2017-12-14] MEDS ORDERED: DONNATAL TABL16.2 MG PO (18:41)
[2017-12-14] MEDS ORDERED: REGLAN10 M1 PO (18:41)
--- NOTE | 2017-12-14 21:40 | ULTRASOUND REPORT ---
EXAMINATION: US ABDOMEN LIMITED CLINICAL INFORMATION: Epigastric pain with elevated lipase. COMPARISON: None TECHNIQUE: Real-time imaging of the right upper quadrant abdominal viscera. FINDINGS: PANCREAS: Normal. LIVER: Normal. The liver demonstrates normal size, contour and echogenicity. No focal lesion or intrahepatic biliary duct dilatation. GALLBLADDER: Normal. The gallbladder is physiologically distended without evidence of stones, sludge, polyps, wall thickening or pericholecystic fluid. COMMON BILE DUCT: Normal in caliber measuring 0.5 cm in diameter. RIGHT KIDNEY: Normal. No hydronephrosis. No renal calculi or focal parenchymal lesions. The kidney measures 10.2 cm in maximum dimension. FREE FLUID: None. IMPRESSION: Unremarkable limited abdomen ultrasound.
[2017-12-14 22:16] VITALS: BP 136/80
== END 2017-12-14 22:22 ==
LOC: ERH 15:36
PROVIDERS: Physician Assistant Medical
DX: R74.8 Abnormal levels of other serum enzymes (principal); G80.3 Athetoid cerebral palsy; K44.9 Diaphragmatic hernia without obstruction or gangrene
CPT/HCPCS: 96374; 96375; 96376; J2765

== ENCOUNTER 2018-01-09 16:18 | Emergency (ER) | payer OTHER, MEDICARE ==
[~2018-01-09 16:18] MED LIST changes: +DONNATAL TABL16.2 MG PO
[2018-01-09 16:54] LABS: ABSOLUTE BASOPHIL COUNT 0 /CUMM (0.0-0.2); ABSOLUTE EOSINOPHIL COUNT 0.1 /CUMM (0.0-0.7); ABSOLUTE GRANULOCYTE CT 7.4 /CUMM (1.4-6.5); ABSOLUTE LYMPH COUNT 1.6 /CUMM (1.2-3.4); ABSOLUTE MONOCYTE COUNT 0.7 /CUMM (0.10-0.60); BASOPHIL % 0.4 % (0.0-2.0); EOSINOPHIL % 1.5 % (0-5); HEMATOCRIT 43.4 % (37-47); MEAN CORPUSCULAR HGB 27.8 PG (27.0-31.0); MEAN PLATELET VOLUME 11.4 FL (7.4-10.4); PLATELET COUNT 179 /CUMM (130-400); RBC DISTRIBUTION WIDTH 13.7 % (11.5-14.5); RED BLOOD CELL CT 5.17 /CUMM (4.20-5.40); WHITE BLOOD CELL COUNT 9.9 /CUMM (4.8-10.8)
--- NOTE | 2018-01-09 18:01 | ED GI/GU/ABDOMINAL COMPLAINT ---
History of Present Illness General Chief Complaint: General Adult Stated Complaint: "STOMACH PAIN,SHE'S IN A FOG" PER PT'S BROTHER Source: patient, family Exam Limitations: no limitations Vital Signs & Intake/Output Vital Signs & Intake/Output Vital Signs Date Time Temp Pulse Resp B/P B/P Pulse O2 O2 Flow FiO2 Mean Ox Delivery Rate 01/09 1856 97.2 97 18 146/82 99 Room Air 01/09 1856 97 Room Air 01/09 1627 98.1 100 16 151/90 99 Room Air ED Intake and Output 01/10 0000 01/09 1200 Intake Total Output Total Balance Patient 111 lb Weight Weight Reported by Patient Measurement Method Allergies Coded Allergies: No Known Allergies (12/02/17) Reconcile Medications Aspirin (Children's Aspirin) 81 MG TAB.CHEW 1 TAB PO DAILY HEART/BLOOD ( Reported) Calcium (Elemental-Fr Calcarb) (Calcium) 600 MG CALCIUM (1,500 MG) TABLET 2 TAB PO DAILY SUPPLEMENT (Reported) Cholecalciferol (Vitamin D3) (Vitamin D-3) 2,000 UNIT TABLET 1 TAB PO DAILY SUPPLEMENT (Reported) Fexofenadine HCl (Jonna Allergy) 180 MG TABLET 1 TAB PO DAILY ALLERGIES ( Reported) Hyoscyamine (Levsin) 0.125 MG TABLET 1 TAB PO Q4 PRN ABDOMINAL SPASMS Ibandronate Sodium (Boniva) 150 MG TABLET 1 TAB PO Q30D BONES (Reported) on the same date with a full glass of water at least 30 minutes before first food or drink of the day; remain in an upright posi LORazepam (Ativan) 1 MG TABLET 1 TAB PO BID STRESS (Reported) LORazepam (Ativan) 1 MG TAB 1 TAB PO BID PRN ABDOMINAL PAIN TEN... [id number] Metoclopramide HCl (Reglan) 10 MG TABLET 1 TAB PO 4 TIMES/DAY PRN abd pain 30 minutes before meals and bedtime Pantoprazole Sodium 40 MG TABLET.DR 1 TAB PO DAILY GI (Reported) Phenobarb/Hyoscy/Atropine/Scop ( Tablet) 16.2 MG TABLET 1 TAB PO Q6HP PRN abd pain Rosuvastatin Calcium (Crestor) 20 MG TABLET 1 TAB PO DAILY CHOLESTEROL ( Reported) Triage Note: 57F WELL KNOWN TO ED RETURNS FOR LUQ PAIN SINCE THIS AM. -N/V. DENIES SYMPTOMS. BROTHER STATES "SHE SEEMS TO BE IN A FOG TODAY." APPEARS AWAKE, ALERT AND ANSWERING QUESTIONS WITHOUT DIFFICULTY. BROTHER ALSO REPORTS 2 YEARS OF DIARRHEA. Triage Nurses Notes Reviewed? yes ? N Is pt currently ? No Timing: recent history Severity Numbers: 5 Location: generalized abdomen Radiation: no radiation Activities at Onset: none HPI: Patient is a 57-year-old female with a past medical history of cerebral palsy and chronic abdominal cramping complaints were patient has been evaluated on multiple occasions here at [facility] emergency room in which she presents with family members for concerns of an exacerbation of her chronic abdominal cramping for the past 24 hours. Patient also has had loose watery diarrhea production with no blood no melena. Patient can tolerate by mouth patient is unrelieved with her hyoscyamine and her by mouth Ativan. Patient has a follow-up appointment in the upcoming weeks with neurology and her surgery technician for her chronic symptoms. Patient can tolerate by mouth Complains of mild abdominal discomfort. Denies any fever chills chest pain arm pain jaw pain nausea vomiting dysuria hematuria vaginal bleeding or discharge. (Bryant Giles) Past History Travel History Traveled to [place] past 21 day No Medical History Any Pertinent Medical History? see below for history Neurological: CEREBRAL PALSY EENT: allergies Cardiovascular: hyperlipidemia, MITRAL VALVE REPAIR Respiratory: NONE Gastrointestinal: GERD, irritable bowel syndrome Hepatic: NONE Renal: NONE Musculoskeletal: NONE Psychiatric: NONE Endocrine: NONE Blood Disorders: NONE OFFICE CORRESPONDENT/Reproductive: NONE Surgical History Surgical History: CARDIAC VALVE Psychosocial History Who do you live with Brother What is your primary language Greek Tobacco Use: Never used Family History Hx Contributory? No (Bryant Giles) Review of Systems Review of Systems Constitutional: Reports: no symptoms. EENTM: Reports: no symptoms. Respiratory: Reports: no symptoms. Cardiovascular: Reports: no symptoms. GI: Reports: see HPI. Genitourinary: Reports: no symptoms. Musculoskeletal: Reports: no symptoms. Skin: Reports: no symptoms. Neurological/Psychological: Reports: no symptoms. Hematologic/Endocrine: Reports: no symptoms. Immunologic/Allergic: Reports: no symptoms. All Other Systems: Reviewed and Negative (Bryant Giles) Physical Exam Physical Exam General Appearance: no apparent distress, alert, comfortable Head: atraumatic Eyes: Bilateral: normal appearance. Ears, Nose, Throat, Mouth: moist mucous membrane Neck: normal inspection Respiratory: normal breath sounds Cardiovascular: regular rate/rhythm Gastrointestinal: normal bowel sounds, soft, non-tender Extremities: normal range of motion Neurologic/Psych: no motor/sensory deficits, awake, alert Skin: intact, normal color, warm/dry Core Measures ACS in differential dx? No Sepsis Present: No Sepsis Focused Exam Completed? No (Bryant Giles) Progress Differential Diagnosis: AAA, AMI, appendicitis, biliary colic, bowel obstruction , colon cancer, cholecystitis, diverticulitis, endometritis, esophageal varices, gastritis, hepatitis, hernia, hemorrhoids, ischemic bowel, inflamm bowel dis, kidney stone, Nkechi-Earnestine tear, ovarian cyst, ovarian torsion, pancreatitis, PID/cervicitis, peptic ulcer, PUD/GERD, perforated viscous, SBO, UTI/pyelo Plan of Care: Orders Procedure Date/time Status LIPASE 01/09 1620 Complete COMPREHENSIVE METABOLIC PANEL 01/09 162 Complete CBC WITHOUT DIFFERENTIAL 01/09 162 Complete Laboratory Tests 01/09/18 1645: Anion Gap 13, Estimated GFR > 60, BUN/Creatinine Ratio 25.0, Glucose 102 H, Calcium 10.1, Total Bilirubin 1.4 H, AST 19, ALT 22, Alkaline Phosphatase 72, Total Protein 8.3 H, Albumin 4.9, Globulin 3.4, Albumin/Globulin Ratio 1.4, Lipase 77, CBC w Diff NO MAN DIFF REQ, RBC 5.17, MCV 84.0, MCH 27.8, MCHC 33.0, RDW 13.7, MPV 11.4 H, Gran % 75.0, Lymphocytes % 16.0 L, Monocytes % 7.1, Eosinophils % 1.5, Basophils % 0.4, Absolute Granulocytes 7.4 H, Absolute Lymphocytes 1.6, Absolute Monocytes 0.7 H, Absolute Eosinophils 0.1, Absolute Basophils 0 Patient currently is in no apparent distress resting comfortably bedside nontender abdomen afebrile I reviewed blood work with patient and family members no acute findings. Patient was able tolerate by mouth prior to arrival Patient had significant resolution of presenting complaints with the Ativan and the GI cocktail she was able tolerate. Upon discharge patient looks well no apparent distress and will comply with discharge directions and had no questions. Initial ED EKG: none (Bryant Giles) Departure Departure Disposition: HOME OR SELF CARE Condition: Stable Clinical Impression Primary Impression: Abdominal pain Referrals: Rukhsana PETER,Jelena Jain (PCP/Family) Additional Instructions: As discussed continue home medications as directed. If symptoms worsen or if you develop any new concerning symptom return to emergency him follow-up with her surgery technician and neurologist for your symptoms Departure Forms: Customer Survey General Discharge Information (Brijesh WOODS,Bryant) PA/ROOFING APPLICATOR Co-Sign Statement Statement: ED Attending supervision documentation- [] I saw and evaluated the patient. I have also reviewed all the pertinent lab results and diagnostic results. I agree with the findings and the plan of care as documented in the PA's/ROOFING APPLICATOR's documentation. [X] I have reviewed the ED Record and agree with the PA's/ROOFING APPLICATOR's documentation. [] Additions or exceptions (if any) to the PAs/ROOFING APPLICATOR's note and plan are summarized below: [] (Carrillo PETER,[facility])
[2018-01-09 18:56] VITALS: BP 146/82
== END 2018-01-09 18:57 ==
LOC: ERH 16:18
PROVIDERS: Physician Assistant
DX: R10.84 Generalized abdominal pain (principal)
CPT/HCPCS: 96372